=== PATIENT | female | born 1945 | race American Indian/Alaskan Native ===

== ENCOUNTER 2016-07-09 00:03 | Emergency (ER) | payer MEDICARE, OTHER ==
[2016-07-09 00:17] VITALS: BP 164/40
--- NOTE | 2016-07-09 01:07 | EDM.PDOC ---
ED HPI LOWER BACK PAIN/INJURY - General Chief Complaint: Back Pain or Injury Stated Complaint: LOWER BACK PAIN Time Seen by Provider: 07/09/16 00:50 Source of Information: Reports: Patient History Limitations: Reports: No limitations - History of Present Illness INITIAL COMMENTS - FREE TEXT/NARRATIVE: This 71 yo female reports to the ED with her daughter due to lower back pain. The patient reports she has been having intermittent lower back pains over the past month. The patient reports she was driving around yesterday afternoon/ evening and started to experience increased lower back pain. The patient reports she did take 1 Tylenol (325 mg) at 1600 yesterday, but has continued to have lower back pain. The patient reports she has previously been seen by a bone and joint MD, but did not want to have an injection in her back. 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 - Related Data Allergies/ADRs: Allergies Allergy/AdvReac Type Severity Reaction Status Date / Time clarithromycin Allergy Hives Verified 07/09/16 00:17 codeine Allergy Stomach Verified 07/09/16 00:17 Ache promethazine HCl Allergy Hives Verified 07/09/16 00:17 [From Phenergan] raloxifene Allergy Hives Verified 07/09/16 00:17 Home Meds: Home Meds Calcium Carb & Citrate/Vit D3 [Citracal + D ER] 1 tab PO BID 02/05/14 [History] Fish Oil/Ama-3 Fatty Acids [Fish Oil 1,000 MG] 1 cap PO BID 02/05/14 [History] Metoprolol Tartrate [Lopressor] 25 mg PO DAILY 02/05/14 [History] Multivitamin [Multi Vitamin Daily] 1 tab PO DAILY 02/05/14 [History] Omeprazole [Prilosec] 20 mg PO DAILY 02/05/14 [History] Alendronate [Fosamax] 1 tab PO WEEKLY 08/26/15 [History] Aspirin [Halfprin] 81 mg PO DAILY 08/26/15 [History] Chlorthalidone 12.5 mg PO DAILY 08/26/15 [History] Magnesium Oxide 200 mg PO BID 08/26/15 [History] Sildenafil [Revatio] 1 tab PO BID 08/26/15 [History] amLODIPine [Norvasc] 10 mg PO DAILY 08/26/15 [History] Ciclopirox [Ciclopirox] 1 applic TOP ASDIRECTED 05/07/16 [History] Docusate Sodium [Colace] 100 mg PO DAILY PRN 05/07/16 [History] azaTHIOprine [Imuran] 50 mg PO BID 05/07/16 [History] Lactulose 45 ml PO DAILY 07/09/16 [History] Past Medical History HEENT History: Reports: Impaired vision, Other (see below) Other HEENT History: 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 VENTRAL HERNIA. 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: Musculoskeletal History: Reports: Other (see below) Other Musculoskeletal History: DEGENERATIVE JOINT DISEASE Neurological History: Reports: None Psychiatric History: Reports: Anxiety Endocrine/Metabolic History: Reports: Obesity/BMI 30+ Hematologic History: Reports: None Immunologic History: Reports: None Oncologic (Cancer) History: Reports: None Other Dermatologic History: recent ingrown toenail R) great to removed, now having drng and discomfort - Infectious Disease History Infectious Disease History: Reports: Chicken pox Other Infectious Disease History: doesn't remember - Past Surgical History Head Surgeries/Procedures: Reports: None GI Surgical History: Reports: Appendectomy, Cholecystectomy, Colonoscopy, EGD, Hernia, abdominal, Hernia repair/other Female Surgical History: Reports: section, Hysterectomy, Salpingo- oophorectomy Social & Family History - Family History Family Medical History: Noncontributory HEENT: Reports: None Cardiac: Reports: Hypertension Respiratory: Reports: None GI: Reports: None : Reports: None OBGYN: Reports: None Musculoskeletal: Reports: SLE Neurological: Reports: None Psychiatric: Reports: None Endocrine/Metabolic: Reports: None Hematologic: Reports: None Immunologic: Reports: None Dermatologic: Reports: None Oncologic: Reports: None - Tobacco Use Smoking Status *Q: Never Smoker Used Tobacco, but Quit: Yes Month Tobacco Last Used: 07/08/2008 Second Hand Smoke Exposure: No - Caffeine Use Caffeine Use: Reports: None Other Caffeine Use: AVERAGE INTAKE 4 CUPS - Recreational Drug Use Recreational Drug Use: No Drug Use in Last 12 Months: No ED ROS GENERAL - Review of Systems Review Of Systems: See Below Constitutional: Reports: no symptoms HEENT: Reports: No symptoms Respiratory: Reports: No Symptoms Cardiovascular: Reports: No symptoms Endocrine: Reports: no symptoms GI/Abdominal: Reports: No symptoms : Reports: no symptoms Musculoskeletal: Reports: back pain (lower back pain) Skin: Reports: no symptoms Neurological: Reports: No Symptoms Psychiatric: Reports: No symptoms Hematologic/Lymphatic: Reports: no symptoms Immunologic: Reports: no symptoms ED EXAM,LOWER BACK PAIN/INJURY - Physical Exam Exam: See Below Exam Limited By: No limitations General Appearance: alert, WD/WN, mild distress Eye Exam: bilateral eye: EOMI, normal inspection, PERRL Ears: normal external exam, normal canal, hearing grossly normal, normal TMs Nose: normal inspection, normal mucosa, no blood Throat/Mouth: Normal inspection, Normal lips, Normal teeth, Normal gums, Normal oropharynx, Normal voice, No airway compromise Head: atraumatic, normocephalic Neck: normal inspection, supple, non-tender, full range of motion Respiratory/Chest: no respiratory distress, lungs clear, normal breath sounds, no accessory muscle use, chest non-tender Cardiovascular: normal peripheral pulses, regular rate, rhythm, no edema, no gallop, no JVD, no murmur, no rub GI/Abdominal: normal bowel sounds, soft, non tender, no organomegaly, no distention, no abnormal bruit, no mass (Female) Exam: Deferred Rectal (Female) Exam: Deferred Back Exam: paraspinal tenderness (lower back) Extremities: normal inspection, normal range of motion, non-tender, no pedal edema, normal capillary refill Neurological: alert, normal mood/affect, normal dorsiflexion, CN II-XII intact, normal plantar flexion, normal gait, normal reflexes, no motor/sensory deficits , oriented x 3 Psychiatric: normal affect, normal mood Skin Exam: Warm, Dry, Intact, Normal color, No rash Lymphatic: no adenopathy Course - Vital Signs Last Recorded V/S: Last Vital Signs Temp 36.2 C 07/09/16 00:10 Pulse 62 07/09/16 00:10 Resp 16 07/09/16 00:10 BP 164/40 H 07/09/16 00:10 Pulse Ox 100 07/09/16 00:10 - Orders/Labs/Meds Orders: Active Orders 24 hr Category Date Time Status UA W/MICROSCOPIC [URIN] Stat Lab 07/09/16 00:54 Ordered Departure - Departure Time of Disposition: 01:33 Disposition: Home, Self-Care 01 Condition: fair Clinical Impression: Low back pain Qualifiers: Chronicity: chronic Back pain laterality: bilateral Sciatica presence: without sciatica Qualified Code(s): M54.5 - Low back pain; G89.29 - Other chronic pain Instructions: Back Pain, Adult, Nerk-ro-Hyws Forms: ED Department Discharge Care Plan Goals: The patient was advised of the examination and lab results during the visit. The patient was given an injection of Toradol (30 mg) and an oral dose of Flexeril (10 mg) while in the ED. The patient was encouraged to follow-up with her primary care facility for continued evaluation and management. If the patient has any additional symptoms or concerns, the patient should follow-up with her primary care facility or return to the emergency department. - My Orders Last 24 Hours: My Active Orders 07/09/16 00:54 UA W/MICROSCOPIC [URIN] Stat - Assessment/Plan Last 24 Hours: My Active Orders 07/09/16 00:54 UA W/MICROSCOPIC [URIN] Stat
[2016-07-09] MEDS ORDERED: Ketorolac 30 MG/ML SDV IM ONE (01:32)
[2016-07-09] MEDS ORDERED: Cyclobenzaprine 10 MG Tab PO ONE (01:32)
== END 2016-07-09 01:56 | disposition home or self-care (01) ==
LOC: DL.ED 00:03
DX: M54.5 Low back pain (principal); G89.29 Other chronic pain; I10 Essential (primary) hypertension; K21.9 Gastro-esophageal reflux disease without esophagitis; F41.9 Anxiety disorder, unspecified; E66.9 Obesity, unspecified; Z90.49 Acquired absence of other specified parts of digestive tract; Z90.710 Acquired absence of both cervix and uterus; Z79.82 Long term (current) use of aspirin; Z79.899 Other long term (current) drug therapy; Z88.1 Allergy status to other antibiotic agents; Z88.5 Allergy status to narcotic agent
CPT/HCPCS: 81001; 96372; 99283; A9270; J1885

== ENCOUNTER 2016-07-22 00:47 | Emergency (ER) | payer MEDICARE, OTHER ==
[2016-07-22 01:06] VITALS: BP 182/58
[2016-07-22] MEDS ORDERED: Iopamidol 612 MG/ML 75 ML Bottle IVPUSH ONE (01:11)
--- NOTE | 2016-07-22 02:06 | EDM.PDOC ---
ED HPI GI/ABDOMINAL - General Chief Complaint: Abdominal Pain Stated Complaint: ABD PAIN Time Seen by Provider: 07/22/16 01:15 Source of Information: Reports: Patient History Limitations: Reports: No limitations - History of Present Illness INITIAL COMMENTS - FREE TEXT/NARRATIVE: c/o generalized abdominal pain similar to past since 1830 , no BM for 3 days no nausea or vomiting. Timing/Duration: Reports: Hour(s): Location: generalized Quality: Reports: fullness Severity: moderate - Related Data Allergies/ADRs: Allergies Allergy/AdvReac Type Severity Reaction Status Date / Time clarithromycin Allergy Hives Verified 07/09/16 00:17 codeine Allergy Stomach Verified 07/09/16 00:17 Ache promethazine HCl Allergy Hives Verified 07/09/16 00:17 [From Phenergan] raloxifene Allergy Hives Verified 07/09/16 00:17 Home Meds: Home Meds Calcium Carb & Citrate/Vit D3 [Citracal + D ER] 1 tab PO BID 02/05/14 [History] Fish Oil/Marshall-3 Fatty Acids [Fish Oil 1,000 MG] 1 cap PO BID 02/05/14 [History] Metoprolol Tartrate [Lopressor] 25 mg PO DAILY 02/05/14 [History] Multivitamin [Multi Vitamin Daily] 1 tab PO DAILY 02/05/14 [History] Omeprazole [Prilosec] 20 mg PO DAILY 02/05/14 [History] Alendronate [Fosamax] 1 tab PO WEEKLY 08/26/15 [History] Aspirin [Halfprin] 81 mg PO DAILY 08/26/15 [History] Chlorthalidone 12.5 mg PO DAILY 08/26/15 [History] Magnesium Oxide 200 mg PO BID 08/26/15 [History] Sildenafil [Revatio] 1 tab PO BID 08/26/15 [History] amLODIPine [Norvasc] 10 mg PO DAILY 08/26/15 [History] Ciclopirox [Ciclopirox] 1 applic TOP ASDIRECTED 05/07/16 [History] Docusate Sodium [Colace] 100 mg PO DAILY PRN 05/07/16 [History] azaTHIOprine [Imuran] 50 mg PO BID 05/07/16 [History] Lactulose 45 ml PO DAILY 07/09/16 [History] Past Medical History HEENT History: Reports: Impaired vision, Other (see below) Other HEENT History: 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 VENTRAL HERNIA. 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: Musculoskeletal History: Reports: Other (see below) Other Musculoskeletal History: DEGENERATIVE JOINT DISEASE Neurological History: Reports: None Psychiatric History: Reports: Anxiety Endocrine/Metabolic History: Reports: Obesity/BMI 30+ Hematologic History: Reports: None Immunologic History: Reports: None Oncologic (Cancer) History: Reports: None Other Dermatologic History: recent ingrown toenail R) great to removed, now having drng and discomfort - Infectious Disease History Infectious Disease History: Reports: Chicken pox Other Infectious Disease History: doesn't remember - Past Surgical History Head Surgeries/Procedures: Reports: None GI Surgical History: Reports: Appendectomy, Cholecystectomy, Colonoscopy, EGD, Hernia, abdominal, Hernia repair/other Female Surgical History: Reports: section, Hysterectomy, Salpingo- oophorectomy Social & Family History - Family History Family Medical History: Noncontributory HEENT: Reports: None Cardiac: Reports: Hypertension Respiratory: Reports: None GI: Reports: None : Reports: None OBGYN: Reports: None Musculoskeletal: Reports: SLE Neurological: Reports: None Psychiatric: Reports: None Endocrine/Metabolic: Reports: None Hematologic: Reports: None Immunologic: Reports: None Dermatologic: Reports: None Oncologic: Reports: None - Tobacco Use Smoking Status *Q: Never Smoker Used Tobacco, but Quit: Yes Month Tobacco Last Used: 07/08/2008 Second Hand Smoke Exposure: No - Caffeine Use Caffeine Use: Reports: None Other Caffeine Use: AVERAGE INTAKE 4 CUPS - Recreational Drug Use Recreational Drug Use: No Drug Use in Last 12 Months: No ED ROS GENERAL - Review of Systems Review Of Systems: See Below Constitutional: Denies: fever, chills HEENT: Reports: No symptoms Respiratory: Reports: No Symptoms Cardiovascular: Reports: No symptoms GI/Abdominal: Reports: Abdominal pain, Constipation : Reports: no symptoms Skin: Reports: no symptoms ED EXAM, GI/ABD - Physical Exam Exam: See Below Exam Limited By: No limitations General Appearance: alert, mild distress Eyes: bilateral: normal appearance Throat/Mouth: Normal inspection, Normal voice Head: atraumatic, normocephalic Neck: normal inspection Respiratory/Chest: no respiratory distress, lungs clear Cardiovascular: regular rate, rhythm GI/Abdominal: soft, tenderness, distention Neurological: alert, oriented Skin Exam: Warm, Dry, Intact, Normal color Course - Vital Signs Last Recorded V/S: Last Vital Signs Temp 98.8 F 07/22/16 01:01 Pulse 66 07/22/16 01:01 Resp 18 07/22/16 01:01 BP 182/58 H 07/22/16 01:01 Pulse Ox 100 07/22/16 01:01 - Orders/Labs/Meds Orders: Active Orders 24 hr Category Date Time Status AMYLASE [CHEM] Stat Lab 07/22/16 01:09 Stop Req CBC WITH AUTO DIFF [HEME] Stat Lab 07/22/16 01:09 Stop Req COMPREHENSIVE METABOLIC PN,CMP [CHEM] Stat Lab 07/22/16 01:09 Stop Req LIPASE [CHEM] Stat Lab 07/22/16 01:09 Stop Req UA W/MICROSCOPIC [URIN] Stat Lab 07/22/16 01:21 Stop Req Meds: Medications Discontinued Medications Generic Name Dose Route Start Last Admin Trade Name Freq PRN Reason Stop Dose Admin Iopamidol 75 ml 07/22/16 01:11 Isovue-300 (61%) IVPUSH 07/22/16 01:12 ONETIME ONE - Re-Assessments/Exams Free Text/Narrative Re-Assessment/Exam: 07/22/16 02:03 Patient initially refused IV for CT contrast, after further discussion briefly agreeable to IV for contrast and labs. Before able to obtain lab or start IV refused and stated she wanted to leave, did not want either, risks reviewed and signed AMA form. Left ambulatory. Departure - Departure Time of Disposition: 01:35 Disposition: Against Medical Advice 07 Condition: undetermined Clinical Impression: Abdominal pain Qualifiers: Abdominal location: generalized Qualified Code(s): R10.84 - Generalized abdominal pain Referrals: Kevyn Valladares MD [Primary Care Provider] - Forms: ED Department Discharge - My Orders Last 24 Hours: My Active Orders 07/22/16 01:09 AMYLASE [CHEM] Stat CBC WITH AUTO DIFF [HEME] Stat COMPREHENSIVE METABOLIC PN,CMP [CHEM] Stat LIPASE [CHEM] Stat 07/22/16 01:21 UA W/MICROSCOPIC [URIN] Stat - Assessment/Plan Last 24 Hours: My Active Orders 07/22/16 01:09 AMYLASE [CHEM] Stat CBC WITH AUTO DIFF [HEME] Stat COMPREHENSIVE METABOLIC PN,CMP [CHEM] Stat LIPASE [CHEM] Stat 07/22/16 01:21 UA W/MICROSCOPIC [URIN] Stat
== END 2016-07-22 01:33 | disposition left against medical advice (07) ==
LOC: DL.ED 00:47
DX: R10.84 Generalized abdominal pain (principal); I10 Essential (primary) hypertension; K21.9 Gastro-esophageal reflux disease without esophagitis; F41.9 Anxiety disorder, unspecified; E66.9 Obesity, unspecified; Z90.49 Acquired absence of other specified parts of digestive tract; Z90.710 Acquired absence of both cervix and uterus; Z79.82 Long term (current) use of aspirin; Z79.899 Other long term (current) drug therapy; Z88.5 Allergy status to narcotic agent; Z88.8 Allergy status to other drugs, medicaments and biological substances
CPT/HCPCS: 99282; 99283

== ENCOUNTER 2016-09-09 19:41 | Emergency (ER) | payer MEDICARE, OTHER | END 2016-09-09 20:10 | disposition left against medical advice (07) | LOC: DL.ED 19:41 | DX: Z53.21 Procedure and treatment not carried out due to patient leaving prior to being seen by health care provider (principal) ==

== ENCOUNTER 2017-04-13 07:17 | Emergency (ER) | payer MEDICARE, OTHER ==
[2017-04-13] MEDS ORDERED: Sodium Chloride 0.9% 10 ML Syringe FLUSH PRN (07:50)
[2017-04-13] MEDS ORDERED: fentaNYL 100 MCG/2 ML SDV IVPUSH ONE ×2 (07:52→08:56)
[2017-04-13] MEDS ORDERED: diphenhydrAMINE 50 MG/ML SDV IVPUSH ONE (07:52)
[2017-04-13] MEDS ORDERED: Ondansetron 4 MG/2 ML SDV IV ONE (07:52)
[2017-04-13] MEDS ORDERED: Sodium Chloride 0.9% 1,000 ML IV SCH (08:00)
--- NOTE | 2017-04-13 08:00 | EDM.PDOC ---
ED HPI GENERAL MEDICAL PROBLEM - General Chief Complaint: Abdominal Pain Stated Complaint: BY AMBULANCE Time Seen by Provider: 04/13/17 07:45 Source of Information: Reports: Patient History Limitations: Reports: No Limitations - History of Present Illness INITIAL COMMENTS - FREE TEXT/NARRATIVE: Patient comes emergency Department today by ambulance from home with complaints of lower abdominal pain. During the night approximately 0200 hrs. patient developed lower abdominal pain and abdominal distention and bloating. She has been retching and vomiting at home most of the night. She did have a bowel movement last night that was rather hard she relates. No recent diarrhea. No fever no chills. No chest pain or shortness of breath. No hematuria dysuria or urinary frequency. She has had multiple surgeries on her abdomen and to include a cholecystectomy as well as an appendectomy. She has had a bowel obstruction in the past for which this feels like. Lower Abdomen Pain Score (Numeric/FACES): 10 - Related Data Allergies Allergy/AdvReac Type Severity Reaction Status Date / Time clarithromycin Allergy Hives Verified 04/13/17 07:52 codeine Allergy Stomach Verified 04/13/17 07:52 Ache promethazine HCl Allergy Hives Verified 04/13/17 07:52 [From Phenergan] raloxifene Allergy Hives Verified 04/13/17 07:52 Home Meds: Home Meds Calcium Carb & Citrate/Vit D3 [Citracal + D ER] 1 tab PO BID 02/05/14 [History] Fish Oil/[place]-3 Fatty Acids [Fish Oil 1,000 MG] 1 cap PO BID 02/05/14 [History] Metoprolol Tartrate [Lopressor] 25 mg PO DAILY 02/05/14 [History] Multivitamin [Multi Vitamin Daily] 1 tab PO DAILY 02/05/14 [History] Omeprazole [Prilosec] 20 mg PO DAILY 02/05/14 [History] Alendronate [Fosamax] 1 tab PO WEEKLY 08/26/15 [History] Aspirin [Halfprin] 81 mg PO DAILY 08/26/15 [History] Chlorthalidone 12.5 mg PO DAILY 08/26/15 [History] Magnesium Oxide 200 mg PO BID 08/26/15 [History] amLODIPine [Norvasc] 10 mg PO DAILY 08/26/15 [History] Ciclopirox [Ciclopirox] 1 applic TOP ASDIRECTED 05/07/16 [History] Docusate Sodium [Colace] 100 mg PO DAILY PRN 05/07/16 [History] azaTHIOprine [Imuran] 50 mg PO BID 05/07/16 [History] Lactulose 45 ml PO DAILY 07/09/16 [History] Past Medical History HEENT History: Reports: Impaired Vision, Other (See Below) Other HEENT History: 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 VENTRAL HERNIA. BOLTON'S ESOPHAGUS Genitourinary History: Reports: None RN WOUND History: Reports: Musculoskeletal History: Reports: Other (See Below) Other Musculoskeletal History: DEGENERATIVE JOINT DISEASE Neurological History: Reports: None Psychiatric History: Reports: Anxiety Endocrine/Metabolic History: Reports: Obesity/BMI 30+ Hematologic History: Reports: None Immunologic History: Reports: None Oncologic (Cancer) History: Reports: None Other Dermatologic History: recent ingrown toenail R) great to removed, now having drng and discomfort - Infectious Disease History Infectious Disease History: Reports: Chicken Pox Other Infectious Disease History: doesn't remember - Past Surgical History Head Surgeries/Procedures: Reports: None GI Surgical History: Reports: Appendectomy, Cholecystectomy, Colonoscopy, EGD, Hernia, Abdominal, Hernia Repair/Other Female Surgical History: Reports: Section, Hysterectomy, Salpingo- Oophorectomy Social & Family History - Family History Family Medical History: Noncontributory HEENT: Reports: None Cardiac: Reports: Hypertension Respiratory: Reports: None GI: Reports: None : Reports: None OBGYN: Reports: None Musculoskeletal: Reports: SLE Neurological: Reports: None Psychiatric: Reports: None Endocrine/Metabolic: Reports: None Hematologic: Reports: None Immunologic: Reports: None Dermatologic: Reports: None Oncologic: Reports: None - Tobacco Use Smoking Status *Q: Never Smoker Used Tobacco, but Quit: Yes Month Tobacco Last Used: 07/08/2008 Second Hand Smoke Exposure: No - Caffeine Use Caffeine Use: Reports: None Other Caffeine Use: AVERAGE INTAKE 4 CUPS - Recreational Drug Use Recreational Drug Use: No Drug Use in Last 12 Months: No ED ROS GENERAL - Review of Systems Review Of Systems: ROS reveals no pertinent complaints other than HPI. ED EXAM, GI/ABD - Physical Exam Exam: See Below Text/Narrative:: She is laying on her left side in the position as it is uncomfortable for her to lay down. Her abdomen appears quite distended. Exam Limited By: No Limitations General Appearance: Alert, WD/WN, Mild Distress Eyes: Bilateral: EOMI Ears: Normal External Exam Nose: Normal Inspection, Normal Mucosa Throat/Mouth: Normal Inspection, Normal Lips Head: Atraumatic, Normocephalic Neck: Normal Inspection, Supple Respiratory/Chest: No Respiratory Distress, Lungs Clear, Normal Breath Sounds, No Accessory Muscle Use Cardiovascular: Normal Peripheral Pulses, Regular Rate, Rhythm GI/Abdominal Exam: Distended (Quite distended primarily in the lower aspect of the abdomen.), Guarding (Lower abdomen without rebound), Tender (Generalized tenderness throughout the abdomen.), Abnormal Bowel Sounds (Decreased bowel sounds). No: Rebound (Female) Exam: Deferred Rectal (Female) Exam: Deferred Back Exam: Normal Inspection. No: CVA Tenderness (L), CVA Tenderness (R) Extremities: Normal Inspection, Non-Tender, Normal Capillary Refill Neurological: Alert, Oriented, CN II-XII Intact Psychiatric: Normal Affect, Normal Mood Skin Exam: Warm, Dry, Intact, Normal Color Lymphatic: No Adenopathy Course - Vital Signs Last Recorded V/S: Last Vital Signs Temp 38.1 C 04/13/17 16:15 Pulse 92 04/13/17 16:21 Resp 16 04/13/17 13:55 BP 161/42 H 04/13/17 16:21 Pulse Ox 97 04/13/17 13:55 - Orders/Labs/Meds Orders: Active Orders 24 hr Category Date Time Status Enema [RC] ASDIRECTED Care 04/13/17 08:47 Active Peripheral IV Care [RC] . DIRECTED Care 04/13/17 07:51 Active CULTURE BLOOD [BC] Stat Lab 04/13/17 12:38 Received CULTURE BLOOD [BC] Stat Lab 04/13/17 12:44 Received CULTURE URINE [RM] Stat Lab 04/13/17 14:34 Received Sodium Chloride 0.9% [Normal Saline] 1,000 ml Med 04/13/17 08:00 Active IV ASDIRECTED Sodium Chloride 0.9% [Saline Flush] Med 04/13/17 07:50 Active 10 ml FLUSH ASDIRECTED PRN Blood Culture x2 Reflex Set [OM.PC] Stat Oth 04/13/17 12:19 Ordered NG [Nasogastric Orogastric Tube Insertion] [OM.PC] Oth 04/13/17 08:20 Ordered Routine Peripheral IV Insertion Adult [OM.PC] Stat Ot 04/13/17 07:50 Ordered Medication Orders Sodium Chloride (Normal Saline) 1,000 mls @ 125 mls/hr IV ASDIRECTED EMILY Last Infusion: 04/13/17 08:23 Dose: 125 mls/hr Infusion: 04/13/17 08:04 Dose: 999 mls/hr Infusion: 04/13/17 08:04 Dose: 250 mls/hr Admin: 04/13/17 08:03 Dose: 125 mls/hr Sodium Chloride (Saline Flush) 10 ml FLUSH ASDIRECTED PRN PRN Reason: Keep Vein Open Last Admin: 04/13/17 07:55 Dose: 10 ml Labs: Laboratory Tests 04/13/17 04/13/17 04/13/17 Range/Units 07:46 07:46 07:46 WBC 10.9 H (5.0-10.0) 10^3/uL RBC 4.52 (4.2-5.4) 10^6/uL Hgb 13.1 (12.0-16.0) g/dL Hct 39.4 (37.0-47.0) % MCV 87.2 D (80-100) fL MCH 29.0 (27.0-34.0) pg MCHC 33.2 (33.0-35.0) g/dL Plt Count 265 (150-450) 10^3/uL Neut % (Auto) 93.4 H (42.2-75.2) % Lymph % (Auto) 3.3 L (20.5-50.1) % Leon % (Auto) 2.9 (2-8) % Eos % (Auto) 0.2 L (1.0-3.0) % Baso % (Auto) 0.2 (0.0-1.0) % Sodium 135 (135-145) mmol/L Potassium 3.2 L (3.6-5.0) mmol/L Chloride 98 L (101-111) mmol/L Carbon Dioxide 23.0 (21.0-31.0) mmol/L Anion Gap 17.2 BUN 13 (7-18) mg/dL Creatinine 0.7 (0.6-1.3) mg/dL Est Cr Clr Drug Dosing 53.71 mL/min Estimated GFR (MDRD) > 60 BUN/Creatinine Ratio 18.57 Glucose 189 H (74-105) mg/dL Lactic Acid 3.0 H (0.5-2.2) mmol/L Calcium 9.3 (8.4-10.2) mg/dl Total Bilirubin 0.4 (0.2-1.0) mg/dL AST 34 (10-42) IU/L ALT 17 (10-60) IU/L Alkaline Phosphatase 73 (42-121) IU/L C-Reactive Protein (0.0-1.3) mg/dL Total Protein 7.7 (6.7-8.2) g/dl Albumin 4.2 (3.2-5.5) g/dl Globulin 3.5 Albumin/Globulin Ratio 1.20 Urine Color (YELLOW) Urine Appearance (CLEAR) Urine pH (5.0-9.0) Ur Specific [place] (1.005-1.030) Urine Protein (NEGATIVE) Urine Glucose (UA) (NEGATIVE) Urine Ketones (NEGATIVE) Urine Occult Blood (NEGATIVE) Urine Nitrite (NEGATIVE) Urine Bilirubin (NEGATIVE) Urine Urobilinogen (0.2-1.0) mg/dL Ur Leukocyte Esterase (NEGATIVE) Urine RBC /HPF Urine WBC (0-5/HPF) /HPF Ur Epithelial Cells /HPF Urine Bacteria (0-FEW/HPF) /HPF 04/13/17 04/13/17 Range/Units 07:46 14:34 WBC (5.0-10.0) 10^3/uL RBC (4.2-5.4) 10^6/uL Hgb (12.0-16.0) g/dL Hct (37.0-47.0) % MCV (80-100) fL MCH (27.0-34.0) pg MCHC (33.0-35.0) g/dL Plt Count (150-450) 10^3/uL Neut % (Auto) (42.2-75.2) % Lymph % (Auto) (20.5-50.1) % Leon % (Auto) (2-8) % Eos % (Auto) (1.0-3.0) % Baso % (Auto) (0.0-1.0) % Sodium (135-145) mmol/L Potassium (3.6-5.0) mmol/L Chloride (101-111) mmol/L Carbon Dioxide (21.0-31.0) mmol/L Anion Gap BUN (7-18) mg/dL Creatinine (0.6-1.3) mg/dL Est Cr Clr Drug Dosing mL/min Estimated GFR (MDRD) BUN/Creatinine Ratio Glucose (74-105) mg/dL Lactic Acid (0.5-2.2) mmol/L Calcium (8.4-10.2) mg/dl Total Bilirubin (0.2-1.0) mg/dL AST (10-42) IU/L ALT (10-60) IU/L Alkaline Phosphatase (42-121) IU/L C-Reactive Protein 1.0 (0.0-1.3) mg/dL Total Protein (6.7-8.2) g/dl Albumin (3.2-5.5) g/dl Globulin Albumin/Globulin Ratio Urine Color Yellow (YELLOW) Urine Appearance Slightly cloudy (CLEAR) Urine pH 7.0 (5.0-9.0) Ur Specific [place] 1.025 (1.005-1.030) Urine Protein >=300 H (NEGATIVE) Urine Glucose (UA) Negative (NEGATIVE) Urine Ketones Negative (NEGATIVE) Urine Occult Blood Negative (NEGATIVE) Urine Nitrite Negative (NEGATIVE) Urine Bilirubin Negative (NEGATIVE) Urine Urobilinogen 1.0 (0.2-1.0) mg/dL Ur Leukocyte Esterase Negative (NEGATIVE) Urine RBC 5-10 H /HPF Urine WBC 10-20 H (0-5/HPF) /HPF Ur Epithelial Cells Rare /HPF Urine Bacteria Rare (0-FEW/HPF) /HPF Meds: Medications Generic Name Dose Route Start Last Admin Trade Name Freq PRN Reason Stop Dose Admin Sodium Chloride 1,000 mls @ 125 mls/hr 04/13/17 08:00 04/13/17 08:23 Normal Saline IV 125 mls/hr ASDIRECTED EMILY Infusion Sodium Chloride 10 ml 04/13/17 07:50 04/13/17 07:55 Saline Flush FLUSH 10 ml ASDIRECTED PRN Administration Keep Vein Open Discontinued Medications Generic Name Dose Route Start Last Admin Trade Name Juan David PRN Reason Stop Dose Admin Diphenhydramine HCl 12.5 mg 04/13/17 07:52 04/13/17 07:58 Benadryl IVPUSH 04/13/17 07:53 12.5 mg ONETIME ONE Administration Fentanyl 25 mcg 04/13/17 07:52 04/13/17 07:59 Sublimaze IVPUSH 04/13/17 07:53 25 mcg ONETIME ONE Administration Fentanyl 50 mcg 04/13/17 08:56 04/13/17 09:02 Sublimaze IVPUSH 04/13/17 08:57 50 mcg ONETIME ONE Administration Iopamidol 75 ml 04/13/17 14:00 04/13/17 13:15 Isovue-300 (61%) IVPUSH 04/13/17 14:01 75 ml ONETIME ONE Administration Morphine Sulfate 4 mg 04/13/17 12:55 04/13/17 13:04 Morphine IVPUSH 04/13/17 12:56 4 mg ONETIME ONE Administration Morphine Sulfate 4 mg 04/13/17 16:18 04/13/17 16:27 Morphine IVPUSH 04/13/17 16:19 4 mg ONETIME ONE Administration Ondansetron HCl 4 mg 04/13/17 07:52 04/13/17 07:57 Zofran IV 04/13/17 07:53 4 mg ONETIME ONE Administration - Radiology Interpretation Free Text/Narrative:: Two-view abdomen per radiology fecal impaction. This appears to be causing the obstruction. CT abdomen and pelvis per radiology. #1 huge ventral wall defect and incarcerated loops of bowel no evidence of air-fluid level or associated mechanical bowel obstruction. Ileus is present. #2 large volume of stool in the intraperitoneal descending and right colon. Large oval dense mass in the rectus sheath question hernia mesh versus sponge foreign body. No abdominal or pelvic mass lesion no mesenteric or retroperitoneal lymphadenopathy. Huge hiatal hernia. NG tube. - Re-Assessments/Exams Free Text/Narrative Re-Assessment/Exam: 04/13/17 07:58 IV normal saline 250 bolus. Then 125mls hour. Benadryl 12.5mg Zofran 4mg IV Fentanyl 25mg IVP 04/13/17 09:54 Two-view abdomen per radiology fecal impaction. This appears to be causing the obstruction. 04/13/17 09:55 To the floor for enema. 04/13/17 12:19 After multiple attempts of an enema which were unsuccessful the patient has increased pain and now is a fever of 101.2. We will do a CAT scan of her abdomen at this time. 04/13/17 17:12 Blood cultures pending. Patient is still quite uncomfortable. The hospitalist refused to admit the patient here. I will transfer [facility]. Departure - Departure Time of Disposition: 15:56 Disposition: DC/Tfer to [facility] 02 Clinical Impression: Ileus, Fecal impaction - Discharge Information Forms: ED Department Discharge, Interfacility Transfer EMTALA ED Communication - Discussed Case With (1) Discussed Case With (1): Admitting Provider (Called and spoke with the hospitalist about my concerns of the abd distention continued pain and fever at this time without improvement with multiple enemas. HE did go and assess the patient and refused the patient for admission here, with a surgeon available this week.) - Discussed Case With (2) Discussed Case With (2): Admitting Provider (Called and spoke with Dr. Brooks at in [facility] ER COURSE findings and concerns were relayed to him verbally over the phone. His questions were answered and he accepted the patient in transfer at this time.) - My Orders Last 24 Hours: My Active Orders 04/13/17 07:50 Sodium Chloride 0.9% [Saline Flush] 10 ml FLUSH ASDIRECTED PRN Peripheral IV Insertion Adult [OM.PC] Stat 04/13/17 07:51 Peripheral IV Care [RC] . DIRECTED 04/13/17 08:00 Sodium Chloride 0.9% [Normal Saline] 1,000 ml IV ASDIRECTED 04/13/17 08:20 NG [Nasogastric Orogastric Tube Insertion] [OM.PC] Routine 04/13/17 08:47 Enema [RC] ASDIRECTED 04/13/17 12:19 Blood Culture x2 Reflex Set [OM.PC] Stat 04/13/17 12:38 CULTURE BLOOD [BC] Stat 04/13/17 12:44 CULTURE BLOOD [BC] Stat 04/13/17 14:34 CULTURE URINE [RM] Stat - Assessment/Plan Last 24 Hours: My Active Orders 04/13/17 07:50 Sodium Chloride 0.9% [Saline Flush] 10 ml FLUSH ASDIRECTED PRN Peripheral IV Insertion Adult [OM.PC] Stat 04/13/17 07:51 Peripheral IV Care [RC] . DIRECTED 04/13/17 08:00 Sodium Chloride 0.9% [Normal Saline] 1,000 ml IV ASDIRECTED 04/13/17 08:20 NG [Nasogastric Orogastric Tube Insertion] [OM.PC] Routine 04/13/17 08:47 Enema [RC] ASDIRECTED 04/13/17 12:19 Blood Culture x2 Reflex Set [OM.PC] Stat 04/13/17 12:38 CULTURE BLOOD [BC] Stat 04/13/17 12:44 CULTURE BLOOD [BC] Stat 04/13/17 14:34 CULTURE URINE [RM] Stat Assessment:: Ileus, most likely from fecal impaction and large hiatas hernia. Febrile Plan: Transfer to [facility] for further care and evaluation and management. Continue IV fluids and NG to sxn.
[2017-04-13 08:13] LABS: ANION GAP 17.2; CHLORIDE,CL 98 mmol/L (101-111); SODIUM,NA 135 mmol/L (135-145)
[2017-04-13] MEDS ORDERED: Morphine 4 MG/ML Syringe IVPUSH ONE ×2 (12:55→16:18)
[2017-04-13] MEDS ORDERED: Iopamidol 612 MG/ML 75 ML Bottle IVPUSH ONE (14:00)
--- NOTE | 2017-04-13 14:53 | CT ---
CLINICAL HISTORY: 72-year-old 166 pound female with fecal impaction (bowel obstruction?); previous hy sterectomy and appendectomy. SCAN TECHNIQUE: Volume acquisition of data from the abdomen and pelvis obtained without oral contrast but during the intravenous administration 75 cc nonionic Isovue contrast (3 cc/s via injector) while lying supine on the Siemens multislice CT scanner [place], [place]. A ll data archived in the PACS system for storage, reformatting and study. INTERPRETATION: Abnormal. 1. Huge ventral wall defect with herniated and incarcerated loops of some small and descending left l arge intestine but no current evidence of pathologic air-fluid level, (i.e., no associated mechanical bowel obstruction at this time). Ileus. 2. Large volume of stool in the intraperitoneal, ascending, right colon. 3. No inflammatory "dirty" peritoneal fat, ascites or free intraperitoneal air. 4. Large oval 2.5 x 5.5 cm dense mass in the rectus sheath, right of midline, just above the pubic sy mphysis. (Hernia mesh? Sponge foreign body? Postoperative dystrophic calcifications?) NOTE: This unchanged since 26 April 2016 exam. 5. No abdominal or pelvic mass lesion; No mesenteric or retroperitoneal lymphadenopathy. 6. Huge hiatus hernia. NG tube. Dense calcified normal caliber aortoiliac vessels. No aneurysm. 7. Gallbladder not identified. Liver, spleen, pancreas and adrenal glands unremarkable.
[2017-04-13 16:21] VITALS: BP 161/42
== END 2017-04-13 17:21 ==
LOC: DL.ED 07:17
DX: K56.7 Ileus, unspecified (principal); K56.41 Fecal impaction; I10 Essential (primary) hypertension; Z88.1 Allergy status to other antibiotic agents; Z88.5 Allergy status to narcotic agent; Z88.8 Allergy status to other drugs, medicaments and biological substances; Z79.899 Other long term (current) drug therapy; Z79.82 Long term (current) use of aspirin; Z90.49 Acquired absence of other specified parts of digestive tract; Z87.891 Personal history of nicotine dependence
CPT/HCPCS: 36415; 74019; 74177; 80053; 81001; 83605; 85025; 86140; 87040; 87086; 96361; 96374; 96375; 96376; 99285; J1200; J2270; J2405; J3010; J7030; J7050; Q9967; 87077; 99284

== ENCOUNTER 2017-05-09 13:08 | Emergency (ER) | payer MEDICARE, OTHER ==
[2017-05-09 13:27] VITALS: BP 121/59
== END 2017-05-09 13:27 | disposition left against medical advice (07) ==
LOC: DL.ED 13:08
DX: Z53.21 Procedure and treatment not carried out due to patient leaving prior to being seen by health care provider (principal)

== ENCOUNTER 2017-07-21 09:35 | Emergency (ER) | payer MEDICARE, OTHER ==
[2017-07-21 09:53] VITALS: BP 149/55
--- NOTE | 2017-07-21 10:17 | EDM.PDOC ---
ED HPI GENERAL MEDICAL PROBLEM - General Chief Complaint: Neurological Problem Stated Complaint: DIZZY Time Seen by Provider: 07/21/17 09:55 Source of Information: Reports: Patient History Limitations: Reports: No Limitations - History of Present Illness INITIAL COMMENTS - FREE TEXT/NARRATIVE: This 72 yo female patient reports to the ED with generalized dizziness that started this morning. The patient reports she has had a runny nose over the weekend and may have had a fever. The patient has been seeing Dr. Valladares over the past couple of weeks for anemia. The patient reports she has had an EKG, blood work, a couple of visits with Dr. Valladares and an Echo. The patient reports that they have not found anything. The patient reports she is scheduled to go to the [facility] on August 04 for a further evaluation and further treatment. The patient reports her symptoms have mostly resolved by the time of the patient evaluation. The patient's last visit with Dr. Valladares was yesterday. The patient also reports she has vomited 1 time today. Onset: Today (dizziness) Onset Date: 07/21/17 Duration: Improving Location: Reports: Generalized Quality: Reports: Other Severity: Mild Improves with: Reports: None Worsens with: Reports: None Associated Symptoms: Reports: No Other Symptoms - Related Data Allergies Allergy/AdvReac Type Severity Reaction Status Date / Time clarithromycin Allergy Hives Verified 04/13/17 07:52 codeine Allergy Stomach Verified 04/13/17 07:52 Ache promethazine HCl Allergy Hives Verified 04/13/17 07:52 [From Phenergan] raloxifene Allergy Hives Verified 04/13/17 07:52 Home Meds: Home Meds Calcium Carb & Citrate/Vit D3 [Citracal + D ER] 1 tab PO BID 02/05/14 [History] Fish Oil/[place]-3 Fatty Acids [Fish Oil 1,000 MG] 1 cap PO BID 02/05/14 [History] Metoprolol Tartrate [Lopressor] 25 mg PO DAILY 02/05/14 [History] Multivitamin [Multi Vitamin Daily] 1 tab PO DAILY 02/05/14 [History] Omeprazole [Prilosec] 20 mg PO DAILY 02/05/14 [History] Alendronate [Fosamax] 1 tab PO WEEKLY 08/26/15 [History] Aspirin [Halfprin] 81 mg PO DAILY 08/26/15 [History] Chlorthalidone 12.5 mg PO DAILY 08/26/15 [History] Magnesium Oxide 200 mg PO BID 08/26/15 [History] amLODIPine [Norvasc] 10 mg PO DAILY 08/26/15 [History] Ciclopirox 1 applic TOP ASDIRECTED 05/07/16 [History] Docusate Sodium [Colace] 100 mg PO DAILY PRN 05/07/16 [History] azaTHIOprine [Imuran] 50 mg PO BID 05/07/16 [History] Lactulose 45 ml PO DAILY 07/09/16 [History] Past Medical History HEENT History: Reports: Impaired Vision, Other (See Below) Other HEENT History: 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 VENTRAL HERNIA. 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: Musculoskeletal History: Reports: Other (See Below) Other Musculoskeletal History: DEGENERATIVE JOINT DISEASE Neurological History: Reports: None Psychiatric History: Reports: Anxiety Endocrine/Metabolic History: Reports: Obesity/BMI 30+ Hematologic History: Reports: None Immunologic History: Reports: None Oncologic (Cancer) History: Reports: None Other Dermatologic History: recent ingrown toenail R) great to removed, now having drng and discomfort - Infectious Disease History Infectious Disease History: Reports: Chicken Pox Other Infectious Disease History: doesn't remember - Past Surgical History Head Surgeries/Procedures: Reports: None GI Surgical History: Reports: Appendectomy, Cholecystectomy, Colonoscopy, EGD, Hernia, Abdominal, Hernia Repair/Other Female Surgical History: Reports: Section, Hysterectomy, Salpingo- Oophorectomy Social & Family History - Family History Family Medical History: Noncontributory HEENT: Reports: None Cardiac: Reports: Hypertension Respiratory: Reports: None GI: Reports: None : Reports: None OBGYN: Reports: None Musculoskeletal: Reports: SLE Neurological: Reports: None Psychiatric: Reports: None Endocrine/Metabolic: Reports: None Hematologic: Reports: None Immunologic: Reports: None Dermatologic: Reports: None Oncologic: Reports: None - Tobacco Use Smoking Status *Q: Never Smoker Used Tobacco, but Quit: Yes Month/Year Tobacco Last Used: 07/08/2008 Second Hand Smoke Exposure: No - Caffeine Use Caffeine Use: Reports: Coffee, Soda, Tea Other Caffeine Use: AVERAGE INTAKE 4 CUPS - Recreational Drug Use Recreational Drug Use: No Drug Use in Last 12 Months: No ED ROS GENERAL - Review of Systems Review Of Systems: ROS reveals no pertinent complaints other than HPI. - Physical Exam Exam: See Below Exam Limited By: No Limitations General Appearance: Alert, WD/WN, Mild Distress Eye Exam: Bilateral Eye: EOMI, Normal Inspection, PERRL Ears: Normal External Exam, Normal Canal, Hearing Grossly Normal, Normal TMs Nose: Normal Inspection, Normal Mucosa, No Blood Throat/Mouth: Normal Inspection, Normal Lips, Normal Teeth, Normal Gums, Normal Oropharynx, Normal Voice, No Airway Compromise Head Exam: Atraumatic, Normocephalic Neck: Normal Inspection, Supple, Non-Tender, Full Range of Motion Respiratory/Chest: No Respiratory Distress, Lungs Clear, Normal Breath Sounds, No Accessory Muscle Use, Chest Non-Tender Cardiovascular: Normal Peripheral Pulses, Regular Rate, Rhythm, No Edema, No Gallop, No JVD, No Murmur, No Rub GI/Abdominal: Normal Bowel Sounds, Soft, Non-Tender, No Organomegaly, No Distention, No Abnormal Bruit, No Mass (Female) Exam: Deferred Rectal (Female) Exam: Deferred Neuro Exam (Abbreviated): Alert, Oriented, CN II-XII Intact, Normal Cognition, Normal Gait, Normal Reflexes, No Motor/Sensory Deficits Back Exam: Normal Inspection, Full Range of Motion, NT Extremities: Normal Inspection, Normal Range of Motion, Non-Tender, No Pedal Edema, Normal Capillary Refill Psychiatric: Anxious Skin Exam: Warm, Dry, Intact, Normal Color, No Rash Course - Vital Signs Last Recorded V/S: Last Vital Signs Temp 37.0 C 07/21/17 09:38 Pulse 78 07/21/17 09:38 Resp 18 07/21/17 09:38 BP 149/55 H 07/21/17 09:38 Pulse Ox 100 07/21/17 09:38 - Orders/Labs/Meds Orders: Active Orders 24 hr Category Date Time Status EKG Documentation Completion [RC] URGENT Care 07/21/17 10:06 Active Chest 1V Frontal [CR] Urgent Exams 07/21/17 10:06 Taken INFLUENZA A+B AG SCREEN [RM] Stat Lab 07/21/17 10:16 Ordered UA W/MICROSCOPIC [URIN] Stat Lab 07/21/17 10:25 Ordered Labs: Laboratory Tests 07/21/17 07/21/17 07/21/17 Range/Units 10:19 10:19 10:25 WBC 6.3 (5.0-10.0) 10^3/uL RBC 3.46 L (4.2-5.4) 10^6/uL Hgb 9.8 L D (12.0-16.0) g/dL Hct 29.9 L (37.0-47.0) % MCV 86.4 (80-100) fL MCH 28.3 (27.0-34.0) pg MCHC 32.8 L (33.0-35.0) g/dL Plt Count 314 (150-450) 10^3/uL Neut % (Auto) 85.5 H (42.2-75.2) % Lymph % (Auto) 5.7 L (20.5-50.1) % [place] % (Auto) 7.4 (2-8) % Eos % (Auto) 1.1 (1.0-3.0) % Baso % (Auto) 0.3 (0.0-1.0) % Sodium 132 L (135-145) mmol/L Potassium 3.6 (3.6-5.0) mmol/L Chloride 101 (101-111) mmol/L Carbon Dioxide 22.0 (21.0-31.0) mmol/L Anion Gap 12.6 BUN 10 (7-18) mg/dL Creatinine 0.5 L (0.6-1.3) mg/dL Est Cr Clr Drug Dosing 75.20 mL/min Estimated GFR (MDRD) > 60 BUN/Creatinine Ratio 20.00 Glucose 133 H (74-105) mg/dL Calcium 8.6 (8.4-10.2) mg/dl Total Bilirubin 0.6 (0.2-1.0) mg/dL AST 26 (10-42) IU/L ALT 12 (10-60) IU/L Alkaline Phosphatase 65 (42-121) IU/L Troponin I < 0.02 (0.00-0.02) ng/ml Total Protein 7.0 (6.7-8.2) g/dl Albumin 3.2 (3.2-5.5) g/dl Globulin 3.8 Albumin/Globulin Ratio 0.84 Urine Color Yellow (YELLOW) Urine Appearance Clear (CLEAR) Urine pH 6.5 (5.0-9.0) Ur Specific [place] 1.015 (1.005-1.030) Urine Protein 30 H (NEGATIVE) Urine Glucose (UA) Negative (NEGATIVE) Urine Ketones Negative (NEGATIVE) Urine Occult Blood Negative (NEGATIVE) Urine Nitrite Negative (NEGATIVE) Urine Bilirubin Negative (NEGATIVE) Urine Urobilinogen 1.0 (0.2-1.0) mg/dL Ur Leukocyte Esterase Trace H (NEGATIVE) Urine RBC 0-5 /HPF Urine WBC 0-5 (0-5/HPF) /HPF Ur Epithelial Cells Moderate H /HPF Urine Bacteria Few (0-FEW/HPF) /HPF Hyaline Casts Many H /LPF Departure - Departure Time of Disposition: 11:40 Disposition: Home, Self-Care 01 Condition: Fair Clinical Impression: Vertigo - Discharge Information Instructions: Vertigo, [id number], Dehydration, Elderly, [id number] Forms: ED Department Discharge Care Plan Goals: The patient and family were advised of the examination, EKG, X-ray and lab results during the visit. The patient was encourage to increase her oral fluid intake. If the patient has any additional symptoms or concerns, the patient should follow-up with her primary care facility or return to the emergency department. - My Orders Last 24 Hours: My Active Orders 07/21/17 10:06 EKG Documentation Completion [RC] URGENT Chest 1V Frontal [CR] Urgent 07/21/17 10:16 INFLUENZA A+B AG SCREEN [RM] Stat 07/21/17 10:25 UA W/MICROSCOPIC [URIN] Stat - Assessment/Plan Last 24 Hours: My Active Orders 07/21/17 10:06 EKG Documentation Completion [RC] URGENT Chest 1V Frontal [CR] Urgent 07/21/17 10:16 INFLUENZA A+B AG SCREEN [RM] Stat 07/21/17 10:25 UA W/MICROSCOPIC [URIN] Stat
[2017-07-21 10:51] LABS: ANION GAP 12.6; CHLORIDE,CL 101 mmol/L (101-111); SODIUM,NA 132 mmol/L (135-145)
--- NOTE | 2017-07-21 16:01 | EKG ---
07/21/2017 - [facility]ERESE [place] I reviewed the EKG and agree with the machine's reading. [facility] /[id number]
== END 2017-07-21 11:45 | disposition home or self-care (01) ==
LOC: DL.ED 09:35
DX: R42 Dizziness and giddiness (principal); I10 Essential (primary) hypertension; Z88.1 Allergy status to other antibiotic agents; Z88.5 Allergy status to narcotic agent; Z88.8 Allergy status to other drugs, medicaments and biological substances; Z79.899 Other long term (current) drug therapy; Z79.82 Long term (current) use of aspirin; Z87.891 Personal history of nicotine dependence
CPT/HCPCS: 36415; 71045; 80053; 81001; 84484; 85025; 87804; 93005; 93010; 99283; 99284

== ENCOUNTER 2017-08-30 08:13 | Emergency (ER) | payer OTHER, MEDICARE ==
[2017-08-30] MEDS ORDERED: Sodium Chloride 0.9% 10 ML Syringe FLUSH PRN (11:23)
[2017-08-30 11:30] VITALS: BP 122/46
[2017-08-30 12:03] LABS: CHLORIDE,CL 95 mmol/L (101-111); SODIUM,NA 127 mmol/L (135-145)
[2017-08-30] MEDS ORDERED: Iopamidol 612 MG/ML 75 ML Bottle IVPUSH ONE (12:11)
[2017-08-30] MEDS ORDERED: NS + KCl 20mEq/L 1,000 ML IV SCH (12:15)
--- NOTE | 2017-08-30 13:33 | CT ---
Clinical history: 72-year-old 146# female with chronic postoperative (cholecystectomy, hysterectomy, hernia repairs) ventral wall defect most recently CT 05 June 2017 exam who presents now, Hospital ED, with necrotic ulceration/suppurative drainage. Scan technique: Volume acquisition of data from the abdomen and pelvis obtained without oral contrast but during/after intravenous ministration 75 cc nonionic Isovue contrast while patient was lying sup ine on the Siemens multi slice CT scanner [place], [place]. All data a rchived in the PACS system for storage, reformatting axial/sagittal/coronal planes and study. Interpretation: Abnormal. 1. Large, midline, suprapubic "mesh" like foreign body described on previous exams 3 April and 2 [facility] 2018 is gone. 2. Reproducible large ventral wall defect measuring over 20.4 cm, from side to side on a plane throug h the kidneys, as noted on previous exam accommodating the anterior subcutaneous herniation of both l arge and small bowel loops. 3. No incarceration, strangulation or signs of mechanical bowel obstruction. 4. *New evidence of what appears to be anterior, infraumbilical, midline, lower abdominal abscess (ax ial scan slice #58) that communicates (draining) with the skin surface. Note: Immediately beneath abs cess there appears to be focal herniation (axial scan slice #62) of sigmoid colon. No current signs o f mechanical bowel obstruction. 5. No intraperitoneal pelvic or abdominal mass lesion. No mesenteric or retroperitoneal lymphadenopat hy. No ascites or free air. 6. Cholecystectomy. Liver, stomach, spleen, pancreas, adrenal glands and kidneys unremarkable. Normal urinary bladder. 7. Dense calcifications abdominal aorta (3.2 cm diameter aneurysm infrarenal abdominal aorta). No ret roperitoneal dissection. 8. Normal cardiac silhouette. Lung bases clear. CONCLUSION: Large ventral wall defect with apparent new suprapubic abscess (since ) delmi rowell to skin surface. Surgical mesh removed. No current signs of mechanical bowel obstruction.
--- NOTE | 2017-08-31 07:50 | EDM.PDOC ---
Scribed by Meeta Rivas 08/30/17 1543 for Quyen Bell NP ED HPI GENERAL MEDICAL PROBLEM - General Chief Complaint: Abdominal Pain Stated Complaint: HAVING BATHROOM ISSUES [id number] Time Seen by Provider: 08/30/17 11:26 Source of Information: Reports: Patient, RN, RN Notes Reviewed History Limitations: Reports: No Limitations - History of Present Illness INITIAL COMMENTS - FREE TEXT/NARRATIVE: Patient presents to the ER with complaint of open wound to the abdomen. She states she woke up this morning and smelled stool. Pain in the left upper and left quadrant all week. She has had fever and chills. She has had no chest pain , shortness of breath, nausea, vomiting, diarrhea or constipation. The hernia mesh dislodged which was found at [place]. The mesh was connected to the colon. Her procedure at [place] is scheduled for 09/03/17. Onset: Gradual Duration: Getting Worse Location: Reports: Abdomen Quality: Reports: Ache Severity: Moderate Improves with: Reports: None Worsens with: Reports: None Associated Symptoms: Reports: No Other Symptoms Lower Abdominal Pain Score (Numeric/FACES): 5 - Related Data Allergies Allergy/AdvReac Type Severity Reaction Status Date / Time clarithromycin Allergy Hives Verified 08/30/17 10:58 codeine Allergy Stomach Verified 08/30/17 10:58 Ache promethazine HCl Allergy Hives Verified 08/30/17 10:58 [From Phenergan] raloxifene Allergy Hives Verified 08/30/17 10:58 Home Meds: Home Meds Calcium Carb & Citrate/Vit D3 [Citracal + D ER] 1 tab PO BID 02/05/14 [History] Fish Oil/[place]-3 Fatty Acids [Fish Oil 1,000 MG] 1 cap PO BID 02/05/14 [History] Metoprolol Tartrate [Lopressor] 25 mg PO DAILY 02/05/14 [History] Multivitamin [Multi Vitamin Daily] 1 tab PO DAILY 02/05/14 [History] Omeprazole [Prilosec] 20 mg PO DAILY 02/05/14 [History] Alendronate [Fosamax] 1 tab PO WEEKLY 08/26/15 [History] Aspirin [Halfprin] 81 mg PO DAILY 08/26/15 [History] Chlorthalidone 12.5 mg PO DAILY 08/26/15 [History] Magnesium Oxide 200 mg PO BID 08/26/15 [History] amLODIPine [Norvasc] 10 mg PO DAILY 08/26/15 [History] Ciclopirox 1 applic TOP ASDIRECTED 05/07/16 [History] Docusate Sodium [Colace] 100 mg PO DAILY PRN 05/07/16 [History] azaTHIOprine [Imuran] 50 mg PO BID 05/07/16 [History] Lactulose 45 ml PO DAILY 07/09/16 [History] Past Medical History HEENT History: Reports: Impaired Vision, Other (See Below) Other HEENT History: 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 VENTRAL HERNIA. 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: Musculoskeletal History: Reports: Other (See Below) Other Musculoskeletal History: DEGENERATIVE JOINT DISEASE Neurological History: Reports: None Psychiatric History: Reports: Anxiety Endocrine/Metabolic History: Reports: Obesity/BMI 30+ Hematologic History: Reports: None Immunologic History: Reports: None Oncologic (Cancer) History: Reports: None Dermatologic History: Reports: Other (See Below) Other Dermatologic History: recent ingrown toenail R) great to removed, now having drng and discomfort - Infectious Disease History Infectious Disease History: Reports: Chicken Pox Other Infectious Disease History: doesn't remember - Past Surgical History Head Surgeries/Procedures: Reports: None GI Surgical History: Reports: Appendectomy, Cholecystectomy, Colonoscopy, EGD, Hernia, Abdominal, Hernia Repair/Other Female Surgical History: Reports: Section, Hysterectomy, Salpingo- Oophorectomy Social & Family History - Family History Family Medical History: Noncontributory HEENT: Reports: None Cardiac: Reports: Hypertension Respiratory: Reports: None GI: Reports: None : Reports: None OBGYN: Reports: None Musculoskeletal: Reports: SLE Neurological: Reports: None Psychiatric: Reports: None Endocrine/Metabolic: Reports: None Hematologic: Reports: None Immunologic: Reports: None Dermatologic: Reports: None Oncologic: Reports: None - Tobacco Use Smoking Status *Q: Former Smoker Used Tobacco, but Quit: Yes Month/Year Tobacco Last Used: ? - Caffeine Use Caffeine Use: Reports: None Other Caffeine Use: AVERAGE INTAKE 4 CUPS - Recreational Drug Use Recreational Drug Use: No ED ROS GENERAL - Review of Systems Review Of Systems: ROS reveals no pertinent complaints other than HPI. ED EXAM, GI/ABD - Physical Exam Exam: See Below Exam Limited By: No Limitations General Appearance: Alert, WD/WN, No Apparent Distress Eyes: Bilateral: Normal Appearance, EOMI Ears: Normal External Exam, Normal Canal, Hearing Grossly Normal, Normal TMs Nose: Normal Inspection, Normal Mucosa, No Blood Throat/Mouth: Normal Inspection, Normal Lips, Normal Teeth, Normal Gums, Normal Oropharynx, Normal Voice, No Airway Compromise Head: Atraumatic, Normocephalic Neck: Normal Inspection, Supple, Non-Tender, Full Range of Motion Respiratory/Chest: No Respiratory Distress, Lungs Clear, Normal Breath Sounds, No Accessory Muscle Use, Chest Non-Tender Cardiovascular: Normal Peripheral Pulses, Regular Rate, Rhythm, No Edema, No Gallop, No JVD, No Murmur, No Rub GI/Abdominal Exam: Other (3cm x 2cm necrotic wounddraining to middle abdomen which is foul smelling.) (Female) Exam: Deferred Rectal (Female) Exam: Deferred Back Exam: Normal Inspection, Full Range of Motion, NT Extremities: Normal Inspection Neurological: Alert, Oriented, CN II-XII Intact, Normal Cognition, Normal Gait, Normal Reflexes, No Motor/Sensory Deficits Psychiatric: Depressed Mood, Tearful Skin Exam: Other (see abdomen) Course - Vital Signs Last Recorded V/S: Last Vital Signs Temp 98.4 F 08/30/17 10:59 Pulse 88 08/30/17 10:59 Resp 18 08/30/17 10:59 BP 122/46 L 08/30/17 10:59 Pulse Ox 100 08/30/17 10:59 - Orders/Labs/Meds Orders: Active Orders 24 hr Category Date Time Status Peripheral IV Care [RC] . DIRECTED Care 08/30/17 11:24 Active CULTURE BLOOD [BC] Stat Lab 08/30/17 11:23 Results CULTURE BLOOD [BC] Stat Lab 08/30/17 11:26 Received CULTURE WOUND [RM] Stat Lab 08/30/17 11:41 Received UA W/MICROSCOPIC [URIN] Stat Lab 08/30/17 12:32 Ordered Blood Culture x2 Reflex Set [OM.PC] Stat Oth 08/30/17 11:23 Ordered Peripheral IV Insertion Adult [OM.PC] Stat Ot 08/30/17 11:24 Ordered Labs: Laboratory Tests 08/30/17 08/30/17 08/30/17 Range/Units 11:26 11:26 11:26 WBC 10.5 H (5.0-10.0) 10^3/uL RBC 3.05 L (4.2-5.4) 10^6/uL Hgb 8.2 L D (12.0-16.0) g/dL Hct 24.7 L (37.0-47.0) % MCV 81.0 D (80-100) fL MCH 26.9 L (27.0-34.0) pg MCHC 33.2 (33.0-35.0) g/dL Plt Count 422 D (150-450) 10^3/uL Neut % (Auto) 85.0 H (42.2-75.2) % Lymph % (Auto) 7.0 L (20.5-50.1) % [place] % (Auto) 7.6 (2-8) % Eos % (Auto) 0.3 L (1.0-3.0) % Baso % (Auto) 0.1 (0.0-1.0) % Sodium 127 L (135-145) mmol/L Potassium 2.8 L (3.6-5.0) mmol/L Chloride 95 L (101-111) mmol/L Carbon Dioxide 20.0 L (21.0-31.0) mmol/L Anion Gap 14.8 BUN 10 (7-18) mg/dL Creatinine 0.7 (0.6-1.3) mg/dL Est Cr Clr Drug Dosing 53.71 mL/min Estimated GFR (MDRD) > 60 BUN/Creatinine Ratio 14.28 Glucose 131 H (74-105) mg/dL Lactic Acid 1.3 (0.5-2.2) mmol/L Calcium 8.3 L (8.4-10.2) mg/dl Total Bilirubin 0.7 (0.2-1.0) mg/dL AST 20 (10-42) IU/L ALT 12 (10-60) IU/L Alkaline Phosphatase 78 (42-121) IU/L Total Protein 6.6 L (6.7-8.2) g/dl Albumin 2.7 L (3.2-5.5) g/dl Globulin 3.9 Albumin/Globulin Ratio 0.69 Urine Color (YELLOW) Urine Appearance (CLEAR) Urine pH (5.0-9.0) Ur Specific [place] (1.005-1.030) Urine Protein (NEGATIVE) Urine Glucose (UA) (NEGATIVE) Urine Ketones (NEGATIVE) Urine Occult Blood (NEGATIVE) Urine Nitrite (NEGATIVE) Urine Bilirubin (NEGATIVE) Urine Urobilinogen (0.2-1.0) mg/dL Ur Leukocyte Esterase (NEGATIVE) Urine RBC /HPF Urine WBC (0-5/HPF) /HPF Ur Epithelial Cells /HPF Amorphous Sediment (0/HPF) /HPF Urine Bacteria (0-FEW/HPF) /HPF Urine Mucus /LPF 08/30/17 Range/Units 12:32 WBC (5.0-10.0) 10^3/uL RBC (4.2-5.4) 10^6/uL Hgb (12.0-16.0) g/dL Hct (37.0-47.0) % MCV (80-100) fL MCH (27.0-34.0) pg MCHC (33.0-35.0) g/dL Plt Count (150-450) 10^3/uL Neut % (Auto) (42.2-75.2) % Lymph % (Auto) (20.5-50.1) % [place] % (Auto) (2-8) % Eos % (Auto) (1.0-3.0) % Baso % (Auto) (0.0-1.0) % Sodium (135-145) mmol/L Potassium (3.6-5.0) mmol/L Chloride (101-111) mmol/L Carbon Dioxide (21.0-31.0) mmol/L Anion Gap BUN (7-18) mg/dL Creatinine (0.6-1.3) mg/dL Est Cr Clr Drug Dosing mL/min Estimated GFR (MDRD) BUN/Creatinine Ratio Glucose (74-105) mg/dL Lactic Acid (0.5-2.2) mmol/L Calcium (8.4-10.2) mg/dl Total Bilirubin (0.2-1.0) mg/dL AST (10-42) IU/L ALT (10-60) IU/L Alkaline Phosphatase (42-121) IU/L Total Protein (6.7-8.2) g/dl Albumin (3.2-5.5) g/dl Globulin Albumin/Globulin Ratio Urine Color Yellow (YELLOW) Urine Appearance Slightly cloudy (CLEAR) Urine pH 7.0 (5.0-9.0) Ur Specific [place] 1.010 (1.005-1.030) Urine Protein Negative (NEGATIVE) Urine Glucose (UA) Negative (NEGATIVE) Urine Ketones Negative (NEGATIVE) Urine Occult Blood Negative (NEGATIVE) Urine Nitrite Negative (NEGATIVE) Urine Bilirubin Negative (NEGATIVE) Urine Urobilinogen 1.0 (0.2-1.0) mg/dL Ur Leukocyte Esterase Negative (NEGATIVE) Urine RBC 0-5 /HPF Urine WBC 0-5 (0-5/HPF) /HPF Ur Epithelial Cells Moderate H /HPF Amorphous Sediment Rare (0/HPF) /HPF Urine Bacteria Rare (0-FEW/HPF) /HPF Urine Mucus Rare /LPF Meds: Medications Discontinued Medications Generic Name Dose Route Start Last Admin Trade Name Freq PRN Reason Stop Dose Admin Potassium Chloride/Sodium Chloride 1,000 mls @ 100 mls/hr 08/30/17 12:15 12:25 Normal Saline With 20 Meq Kcl IV 100 mls/hr ASDIRECTED EMLIY Administration Iopamidol 75 ml 08/30/17 12:11 08/30/17 12:57 Isovue-300 (61%) IVPUSH 08/30/17 12:12 75 ml ONETIME ONE Administration Sodium Chloride 10 ml 08/30/17 11:23 08/30/17 12:03 Saline Flush FLUSH 10 ml ASDIRECTED PRN Administration Keep Vein Open - Radiology Interpretation Free Text/Narrative:: CT abdomen and pelvis: Large ventral wall defect with apparent new suprapubic abscess (since ) draining to skin surface. Surgical mesh removed. No current signs of mechanical bowel obstruction. See rad report. - Re-Assessments/Exams Free Text/Narrative Re-Assessment/Exam: 08/31/17 07:47 Dicussed the patient case with Dr. Andrade at [place]. He states he is happy to accept the patient for direct admit. He states it is not necessary to transfer the patient tonight by ambulance, but she can travel by private vehicle tomorrow morning. He states an ostomy appliance over the wound or a wet to dry dressing would be acceptable. This was discussed with the patient and daughter who agree and state understanding. Departure - Departure Time of Disposition: 15:38 Disposition: DC/Tfer to Acute Hospital 02 Condition: Fair Clinical Impression: Colonic fistula, Abscess - Discharge Information Referrals: Kamran Dunwaay [Primary Care Provider] - Forms: ED Department Discharge Additional Instructions: Travel to [place] per private vehicle tomorrow. - My Orders Last 24 Hours: My Active Orders 08/30/17 11:23 CULTURE BLOOD [BC] Stat Blood Culture x2 Reflex Set [OM.PC] Stat 08/30/17 11:24 Peripheral IV Care [RC] . DIRECTED Peripheral IV Insertion Adult [OM.PC] Stat 08/30/17 11:26 CULTURE BLOOD [BC] Stat 08/30/17 11:41 CULTURE WOUND [RM] Stat 08/30/17 12:32 UA W/MICROSCOPIC [URIN] Stat - Assessment/Plan Last 24 Hours: My Active Orders 08/30/17 11:23 CULTURE BLOOD [BC] Stat Blood Culture x2 Reflex Set [OM.PC] Stat 08/30/17 11:24 Peripheral IV Care [RC] . DIRECTED Peripheral IV Insertion Adult [OM.PC] Stat 08/30/17 11:26 CULTURE BLOOD [BC] Stat 08/30/17 11:41 CULTURE WOUND [RM] Stat 08/30/17 12:32 UA W/MICROSCOPIC [URIN] Stat I have read and agree with the documentation that has been completed regarding this visit. By signing this record, I attest that the documentation was completed in my physical presence and is an accurate record of the encounter.
== END 2017-08-30 15:53 ==
LOC: DL.ED 08:13
DX: K63.2 Fistula of intestine (principal); E66.9 Obesity, unspecified; I10 Essential (primary) hypertension; Z87.891 Personal history of nicotine dependence; Z88.1 Allergy status to other antibiotic agents; Z88.5 Allergy status to narcotic agent; Z88.8 Allergy status to other drugs, medicaments and biological substances; Z79.899 Other long term (current) drug therapy
CPT/HCPCS: 36415; 74177; 80053; 81001; 83605; 85025; 87040; 87070; 87077; 87186; 96365; 96366; 99285; J3480; J7050; Q9967

== ENCOUNTER 2017-10-20 21:42 | Emergency (ER) | payer MEDICARE, OTHER | END 2017-10-20 23:16 | disposition left against medical advice (07) | LOC: DL.ED 21:42 | DX: Z53.21 Procedure and treatment not carried out due to patient leaving prior to being seen by health care provider (principal) ==

== ENCOUNTER 2017-10-21 16:32 | Observation (INO) | payer OTHER, MEDICARE ==
[2017-10-21] MEDS ORDERED: Docusate Sodium 100 MG Cap PO PRN (17:01)
[2017-10-21] MEDS ORDERED: ALENDRONATE PO SCH (17:15)
[2017-10-21] MEDS ORDERED: Non-Formulary Medication 1 Each (Ciclopirox [Ciclopirox] 1 APPLIC) TOP SCH (17:15)
--- NOTE | 2017-10-21 17:32 | PCM.HP ---
H&P History of Present Illness - General Date of Service: 10/21/17 Admit Problem/Dx: Admission Diagnosis/Problem Admission Diagnosis/Problem Hypokalemia Source of Information: Patient History Limitations: Reports: No Limitations, Altered Mental Status - History of Present Illness Initial Comments - Free Text/Narative: Patient is 72 y/o F with complicated medical history including hypertension, hyperlipidemia, Ventral hernia, Sjogren syndrome, Chronic autoimmune hepatitis, deficiency anemia. She recently had abdominal surgery for abdominal abscess and Ventral at [facility] and was discharge on 10/16. Patient was referred fron internal medicine clinic for hospitalization fater she presented there for porr oral intake, generalized weakness since discharge. Labs in the clinic showed K;2.8, Na 133 alb 2.2hb 9.4wbc 4.9. She was sent for admission for rehydration and electrolyte replacement. Patient was accompamnied by daughter. the daughter reports she had not been able to eat since discharge. She is increasing growing weak. Patient reports nausea and occasional vomiting. Vomitted 2x 3 days ago. She notes occasional fever and chills but has been afebrile today. Stool has been loose since dsurgery and was discharge on imodium. She denies abdominal pain. Onset of Symptoms: Reports: Gradual Duration of Symptoms: Reports: Week(s): Location: Reports: Abdomen, Generalized Improves with: Reports: None Worsens with: Reports: None Context: Reports: Activity/Exercise Associated Symptoms: Reports: No Other Symptoms, Nausea/Vomiting - Related Data Allergies/Adverse Reactions: Allergies Allergy/AdvReac Type Severity Reaction Status Date / Time clarithromycin Allergy Hives Verified 10/21/17 17:25 codeine Allergy Stomach Verified 10/21/17 17:25 Ache promethazine HCl Allergy Hives Verified 10/21/17 17:25 [From Phenergan] raloxifene Allergy Hives Verified 10/21/17 17:25 Home Medications: Home Meds Calcium Carb & Citrate/Vit D3 [Citracal + D ER] 1 tab PO BID 02/05/14 [History] Fish Oil/[place]-3 Fatty Acids [Fish Oil 1,000 MG] 1 cap PO BID 02/05/14 [History] Metoprolol Tartrate [Lopressor] 25 mg PO DAILY 02/05/14 [History] Multivitamin [Multi Vitamin Daily] 1 tab PO DAILY 02/05/14 [History] Omeprazole [Prilosec] 20 mg PO DAILY 02/05/14 [History] Alendronate [Fosamax] 1 tab PO WEEKLY 08/26/15 [History] Aspirin [Halfprin] 81 mg PO DAILY 08/26/15 [History] Chlorthalidone 12.5 mg PO DAILY 08/26/15 [History] Magnesium Oxide 200 mg PO BID 08/26/15 [History] amLODIPine [Norvasc] 10 mg PO DAILY 08/26/15 [History] Ciclopirox 1 applic TOP ASDIRECTED 05/07/16 [History] Docusate Sodium [Colace] 100 mg PO DAILY PRN 05/07/16 [History] azaTHIOprine [Imuran] 50 mg PO BID 05/07/16 [History] Lactulose 45 ml PO DAILY 07/09/16 [History] Past Medical History HEENT History: Reports: Impaired Vision, Other (See Below) Other HEENT History: 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 VENTRAL HERNIA. 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: Musculoskeletal History: Reports: Other (See Below) Other Musculoskeletal History: DEGENERATIVE JOINT DISEASE Neurological History: Reports: None Psychiatric History: Reports: Anxiety Endocrine/Metabolic History: Reports: Obesity/BMI 30+ Hematologic History: Reports: None Immunologic History: Reports: None Oncologic (Cancer) History: Reports: None Dermatologic History: Reports: Other (See Below) Other Dermatologic History: recent ingrown toenail R) great to removed, now having drng and discomfort - Infectious Disease History Infectious Disease History: Reports: Chicken Pox Other Infectious Disease History: doesn't remember - Past Surgical History Head Surgeries/Procedures: Reports: None GI Surgical History: Reports: Appendectomy, Cholecystectomy, Colonoscopy, EGD, Hernia, Abdominal, Hernia Repair/Other Female Surgical History: Reports: Section, Hysterectomy, Salpingo- Oophorectomy Social & Family History - Family History Family Medical History: Noncontributory HEENT: Reports: None Cardiac: Reports: Hypertension Respiratory: Reports: None GI: Reports: None : Reports: None OBGYN: Reports: None Musculoskeletal: Reports: SLE Neurological: Reports: None Psychiatric: Reports: None Endocrine/Metabolic: Reports: None Hematologic: Reports: None Immunologic: Reports: None Dermatologic: Reports: None Oncologic: Reports: None - Caffeine Use Caffeine Use: Reports: None Other Caffeine Use: AVERAGE INTAKE 4 CUPS H&P Review of Systems - Review of Systems: Review Of Systems: See Below General: Reports: Malaise, Weakness, Fatigue, Decreased Appetite HEENT: Reports: No Symptoms Pulmonary: Reports: No Symptoms Cardiovascular: Reports: No Symptoms Gastrointestinal: Reports: Anorexia, Diarrhea, Decreased Appetite, Nausea, Vomiting Genitourinary: Reports: No Symptoms Musculoskeletal: Reports: No Symptoms Skin: Reports: No Symptoms Psychiatric: Reports: No Symptoms Neurological: Reports: No Symptoms Hematologic/Lymphatic: Reports: No Symptoms Immunologic: Reports: No Symptoms Exam - Exam Exam: See Below - Exam Quality Assessment: DVT Prophylaxis General: Alert, Oriented, Cooperative HEENT: PERRLA, Hearing Intact, Mucosa Moist & [place], Nares Patent, Normal Nasal Septum, Posterior Pharynx Clear, Conjunctiva Clear, EOMI, EACs Clear, TMs Clear Neck: Supple, Trachea Midline, 2 Lungs: Clear to Auscultation, Normal Respiratory Effort Cardiovascular: Regular Rate, Regular Rhythm GI/Abdominal Exam: Normal Bowel Sounds, Soft, Non-Tender, No Organomegaly, No Distention, No Abnormal Bruit, No Mass, Pelvis Stable, Other (surgical incision noted) (Female) Exam: Normal External Exam, Normal Speculum Exam, Normal Bimanual Exam Rectal (Female) Exam: Normal Exam, Normal Rectal Tone Back Exam: Normal Inspection, Full Range of Motion, NT Extremities: Normal Inspection, Normal Range of Motion, Non-Tender, No Pedal Edema, Normal Capillary Refill Skin: Warm, Dry, Intact Neurological: Cranial Nerves Intact, Reflexes Equal Bilateral Neuro Extensive - Mental Status: Alert, Oriented x3, Normal Mood/Affect, Normal Cognition Neuro Extensive - Motor, Sensory, Reflexes: CN II-XII Intact, Normal Gait, Normal Reflexes Psychiatric: Alert, Normal Affect, Normal Mood - Problem List (1) Weakness generalized SNOMED Code(s): 99906854 ICD Code: R53.1 - WEAKNESS Status: Acute Current Visit: Yes (2) Abdominal pain SNOMED Code(s): 97998294 ICD Code: R10.9 - UNSPECIFIED ABDOMINAL PAIN Status: Acute Current Visit : No Qualifiers: Abdominal location: generalized Qualified Code(s): R10.84 - Generalized abdominal pain (3) Poor appetite SNOMED Code(s): 29076623 ICD Code: R63.0 - ANOREXIA Status: Acute Current Visit: Yes (4) Poor appetite SNOMED Code(s): 93645704 ICD Code: R63.0 - ANOREXIA Status: Acute Current Visit: Yes (5) Hypokalemia SNOMED Code(s): 59314122 ICD Code: E87.6 - HYPOKALEMIA Status: Acute Current Visit: Yes (6) Dehydration SNOMED Code(s): 21220386 ICD Code: E86.0 - DEHYDRATION Status: Acute Current Visit: Yes Problem List Initiated/Reviewed/Updated: Yes Orders Last 24hrs: Active Orders 24 hr Category Date Time Status Patient Status [ADT] Routine ADT 10/21/17 17:04 Ordered Ambulate [RC] ASDIRECTED Care 10/21/17 17:04 Ordered EKG Documentation Completion [RC] ROUTINE Care 10/21/17 17:04 Ordered Intake and Output [RC] QSHIFT Care 10/21/17 17:09 Ordered Oxygen Therapy [RC] PRN Care 10/21/17 17:04 Ordered VTE/DVT Education [RC] PER UNIT ROUTINE Care 10/21/17 17:04 Ordered Vital Signs [RC] Q4H Care 10/21/17 17:04 Ordered OT Evaluation and Treatment [CONS] Routine Cons 10/21/17 17:04 Ordered PT Evaluation and Treatment [CONS] Routine Cons 10/21/17 17:04 Ordered Regular Diet [DIET] Diet 10/21/17 Dinner Ordered BASIC METABOLIC PANEL,BMP [CHEM] Routine Lab 10/21/17 17:04 Ordered CBC WITH AUTO DIFF [HEME] Routine Lab 10/21/17 17:04 Ordered MAGNESIUM [CHEM] Routine Lab 10/21/17 17:04 Ordered PHOSPHORUS [CHEM] Routine Lab 10/21/17 17:04 Ordered Alendronate [Fosamax] Med 10/21/17 17:15 Ordered 1 tab PO WEEKLY Aspirin [Halfprin] Med 10/22/17 09:00 Ordered 81 mg PO DAILY Calcium Carb & Citrate/Vit D3 [Citracal + D ER] Med 10/21/17 21:00 Ordered 1 tab PO BID Chlorthalidone Med 10/22/17 09:00 Ordered 12.5 mg PO DAILY Ciclopirox [Ciclopirox] Med 10/21/17 17:15 Ordered 1 applic TOP ASDIRECTED Docusate Sodium [Colace] Med 10/21/17 17:01 Ordered 100 mg PO DAILY PRN Fish Oil/[place]-3 Fatty Acids [Fish Oil 1,000 MG] Med 10/21/17 21:00 Ordered 1 cap PO BID Heparin Sodium Med 10/21/17 17:15 Ordered 5,000 units SUBCUT Q12H Metoprolol Tartrate [Lopressor] Med 10/22/17 09:00 Ordered 25 mg PO DAILY Multivitamin [Multi-Vitamin Daily] Med 10/22/17 09:00 Ordered 1 tab PO DAILY Omeprazole Med 10/22/17 09:00 Ordered 20 mg PO DAILY Sodium Chloride 0.9% @ 125 MLS/HR (1000ml) Med 10/21/17 17:15 Ordered Sodium Chloride 0.9% [Normal Saline] 1,000 ml IV ASDIRECTED amLODIPine [Norvasc] Med 10/22/17 09:00 Ordered 10 mg PO DAILY azaTHIOprine [Imuran] Med 10/21/17 21:00 Ordered 50 mg PO BID Resuscitation Status Routine Resus Stat 10/21/17 17:04 Ordered Assessment/Plan Comment:: Hypokalemia -Patient presented with K 2.8 -will replace IV -recheck level after replacement Mild hyponatremia -Na 133 -this should improve with adequate hydration Hypoalbuminemia -this is due to poor intake -should improve following improvement in eating Dehydration -IVF Poor oral appetite -encourage oral intake -General diet -nutritional supplement Generalized weakness -PT/OT Chronic iron deficiency anemia -continue home medication HTN -cont. home meds -monitor BP mary jane [place] -continue home meds General diet Full code
[2017-10-21] MEDS ORDERED: Sodium Chloride 0.9% 10 ML Syringe FLUSH PRN (17:41)
[2017-10-21] MEDS: Sodium Chloride 0.9% 1,000 ML IV SCH (18:34)
[2017-10-21] MEDS: Potassium Chloride 20 MEQ in Premix Bag 1 BAG IV SCH ×2 (18:34→22:40)
[2017-10-21 19:00] LABS: ANION GAP 8.9; CHLORIDE,CL 104 mmol/L (101-111); SODIUM,NA 132 mmol/L (135-145)
[2017-10-21] MEDS: Heparin Sodium 5,000 Units/ML Vial SUBCUT SCH (19:21)
[2017-10-21] MEDS ORDERED: Non-Formulary Medication 1 Each (Fish Oil/Omega-3 Fatty Acids [Fish Oil 1,000 Mg] 1 CAP) PO SCH (21:00)
[2017-10-21] MEDS: Zolpidem 5 MG Tab PO PRN (22:39)
[2017-10-21] MEDS: Loperamide 2 MG Cap PO PRN (22:39)
[2017-10-21] MEDS: Calcium Carbonate/Vitamin D3 1250 MG-200 Unit Tab PO SCH (22:39)
[2017-10-22] MEDS: Potassium Chloride 20 MEQ in Premix Bag 1 BAG IV SCH (03:15)
[2017-10-22] MEDS: Omeprazole 20 MG Cap.CR PO SCH (05:22)
[2017-10-22] MEDS: Loperamide 2 MG Cap PO PRN ×3 (05:22→23:50)
[2017-10-22] MEDS: Heparin Sodium 5,000 Units/ML Vial SUBCUT SCH ×2 (05:22→18:20)
[2017-10-22] MEDS: Sodium Chloride 0.9% 1,000 ML IV SCH (05:34)
[2017-10-22] MEDS: Multivitamins,Therapeutic Tab PO SCH (08:27)
[2017-10-22] MEDS: Aspirin 81 MG Tab.EC PO SCH (08:27)
[2017-10-22] MEDS: Chlorthalidone 25 MG Tab PO SCH (08:27)
[2017-10-22] MEDS: Calcium Carbonate/Vitamin D3 1250 MG-200 Unit Tab PO SCH ×2 (08:27→20:25)
[2017-10-22] MEDS: amLODIPine 5 MG Tab PO SCH (08:28)
[2017-10-22] MEDS: Metoprolol Tartrate 25 MG Tab PO SCH (08:28)
[2017-10-22 10:59] LABS: ANION GAP 10.4; CHLORIDE,CL 111 mmol/L (101-111); SODIUM,NA 136 mmol/L (135-145)
[2017-10-22] MEDS ORDERED: Potassium Chloride 10 MEQ Tab.ER PO ONE (11:25)
--- NOTE | 2017-10-22 11:28 | PCM.PN ---
- General Info Date of Service: 10/22/17 Admission Dx/Problem (Free Text): Admission Diagnosis/Problem Admission Diagnosis/Problem Hypokalemia Subjective Update: feeling better, no n/v had some breakfast no associated abd pain - Review of Systems General: Reports: Weakness. Denies: Fever Pulmonary: Denies: Shortness of Breath Cardiovascular: Denies: Chest Pain Neurological: Denies: Confusion - Patient Data Vitals - Most Recent: Last Vital Signs Temp 37.1 C 10/22/17 08:13 Pulse 85 10/22/17 08:28 Resp 20 10/22/17 08:13 BP 116/43 L 10/22/17 08:28 Pulse Ox 100 10/22/17 08:13 Weight - Most Recent: 54.091 kg I&O - Last 24 Hours: Intake & Output 10/21/17 10/22/17 10/22/17 22:59 06:59 14:59 Intake Total 150 1400 100 Output Total 100 Balance 150 1400 0 Lab Results Last 24 Hours: Laboratory Results - last 24 hr 10/21/17 10/21/17 10/21/17 Range/Units 18:30 18:30 18:30 WBC 7.8 (5.0-10.0) 10^3/uL RBC 3.12 L (4.2-5.4) 10^6/uL Hgb 8.6 L (12.0-16.0) g/dL Hct 27.2 L (37.0-47.0) % MCV 87.2 D (80-100) fL MCH 27.6 (27.0-34.0) pg MCHC 31.6 L (33.0-35.0) g/dL Plt Count 356 (150-450) 10^3/uL Neut % (Auto) 72.7 (42.2-75.2) % Lymph % (Auto) 16.8 L (20.5-50.1) % [place] % (Auto) 9.1 H (2-8) % Eos % (Auto) 1.0 (1.0-3.0) % Baso % (Auto) 0.4 (0.0-1.0) % Sodium 132 L (135-145) mmol/L Potassium 2.9 L (3.6-5.0) mmol/L Chloride 104 (101-111) mmol/L Carbon Dioxide 22.0 (21.0-31.0) mmol/L Anion Gap 8.9 BUN 11 (7-18) mg/dL Creatinine 0.7 (0.6-1.3) mg/dL Est Cr Clr Drug Dosing 53.71 mL/min Estimated GFR (MDRD) > 60 Glucose 137 H (74-105) mg/dL Calcium 8.2 L (8.4-10.2) mg/dl Phosphorus 3.3 (2.5-4.6) mg/dL Magnesium 1.6 L (1.8-2.5) mg/dL Total Bilirubin 0.4 (0.2-1.0) mg/dL Direct Bilirubin 0.1 (0.0-0.2) mg/dL Indirect Bilirubin 0.3 AST 24 (10-42) IU/L ALT 18 (10-60) IU/L Alkaline Phosphatase 161 H (42-121) IU/L Total Protein 6.1 L (6.7-8.2) g/dl Albumin 2.3 L (3.2-5.5) g/dl Globulin 3.8 Albumin/Globulin Ratio 0.61 10/22/17 10/22/17 Range/Units 10:32 10:32 WBC 6.6 (5.0-10.0) 10^3/uL RBC 2.95 L (4.2-5.4) 10^6/uL Hgb 8.2 L (12.0-16.0) g/dL Hct 26.1 L (37.0-47.0) % MCV 88.5 (80-100) fL MCH 27.8 (27.0-34.0) pg MCHC 31.4 L (33.0-35.0) g/dL Plt Count 295 (150-450) 10^3/uL Neut % (Auto) 71.2 (42.2-75.2) % Lymph % (Auto) 16.8 L (20.5-50.1) % [place] % (Auto) 9.7 H (2-8) % Eos % (Auto) 1.7 (1.0-3.0) % Baso % (Auto) 0.6 (0.0-1.0) % Sodium 136 (135-145) mmol/L Potassium 3.4 L (3.6-5.0) mmol/L Chloride 111 (101-111) mmol/L Carbon Dioxide 18.0 L (21.0-31.0) mmol/L Anion Gap 10.4 BUN 7 (7-18) mg/dL Creatinine 0.6 (0.6-1.3) mg/dL Est Cr Clr Drug Dosing 62.67 mL/min Estimated GFR (MDRD) > 60 Glucose 119 H (74-105) mg/dL Calcium 8.1 L (8.4-10.2) mg/dl Phosphorus 2.7 (2.5-4.6) mg/dL Magnesium 1.6 L (1.8-2.5) mg/dL Total Bilirubin (0.2-1.0) mg/dL Direct Bilirubin (0.0-0.2) mg/dL Indirect Bilirubin AST (10-42) IU/L ALT (10-60) IU/L Alkaline Phosphatase (42-121) IU/L Total Protein (6.7-8.2) g/dl Albumin (3.2-5.5) g/dl Globulin Albumin/Globulin Ratio Med Orders - Current: Current Medications Amlodipine Besylate (Norvasc) 10 mg PO DAILY [facility] Last Admin: 10/22/17 08:28 Dose: 10 mg Aspirin (Halfprin) 81 mg PO DAILY [facility] Last Admin: 10/22/17 08:27 Dose: 81 mg Azathioprine (Imuran) 50 mg PO BID [facility] Last Admin: 10/22/17 08:26 Dose: 50 mg Calcium Carbonate (Calcium Carbonate/Vitamin D 1250 Mg-200 Unit) 1 tab PO BID [facility] Last Admin: 10/22/17 08:27 Dose: 1 tab Chlorthalidone (Chlorthalidone) 12.5 mg PO DAILY [facility] Last Admin: 10/22/17 08:27 Dose: 12.5 mg Docusate Sodium (Colace) 100 mg PO DAILY PRN PRN Reason: Constipation Heparin Sodium (Porcine) (Heparin Sodium) 5,000 units SUBCUT Q12H [facility] Last Admin: 10/22/17 05:22 Dose: 5,000 units Loperamide HCl (Imodium) 2 mg PO Q6H PRN PRN Reason: Diarrhea Last Admin: 10/22/17 05:22 Dose: 2 mg Magnesium Oxide (Magnesium Oxide) [facility] [place] Metoprolol Tartrate (Lopressor) 25 mg PO DAILY [facility] Last Admin: 10/22/17 08:28 Dose: 25 mg Multivitamins (Thera) 1 each PO DAILY [facility] Last Admin: 10/22/17 08:27 Dose: 1 each Non-Formulary Medication (Alendronate [Fosamax]) 1 tab PO WEEKLY [facility] Non-Formulary Medication (Ciclopirox [Ciclopirox]) 1 applic TOP ASDIRECTED [facility] Non-Formulary Medication (Fish Oil/[place]-3 Fatty Acids [Fish Oil 1,000 Mg]) 1 cap PO BID [facility] Omeprazole (Omeprazole) 20 mg PO ACBRK [facility] Last Admin: 10/22/17 05:22 Dose: 20 mg Potassium Chloride (Klor-Con 10) 40 meq PO ONETIME ONE Stop: 10/22/17 11:26 Sodium Chloride (Saline Flush) 10 ml FLUSH ASDIRECTED PRN PRN Reason: Keep Vein Open Zolpidem Tartrate (Ambien) 5 mg PO BEDTIME PRN PRN Reason: Sleep Last Admin: 10/21/17 22:39 Dose: 5 mg Discontinued Medications Sodium Chloride (Normal Saline) 1,000 mls @ 125 mls/hr IV ASDIRECTED [facility] Last Admin: 10/22/17 05:34 Dose: 125 mls/hr Potassium Chloride 20 meq/ (Premix) 100 mls @ 50 mls/hr IV Q2H [facility] Stop: 10/21/17 21:44 Last Admin: 10/22/17 03:15 Dose: Not Given - Exam General: Alert, Oriented Neck: Supple Lungs: Clear to Auscultation, Normal Respiratory Effort Cardiovascular: Regular Rate, Regular Rhythm GI/Abdominal Exam: Normal Bowel Sounds, Soft, Non-Tender Extremities: No Pedal Edema - Problem List Review Problem List Initiated/Reviewed/Updated: Yes - My Orders Last 24 Hours: My Active Orders 10/21/17 21:25 Loperamide [Imodium] 2 mg PO Q6H PRN 10/21/17 21:37 Zolpidem [Ambien] 5 mg PO BEDTIME PRN 10/22/17 11:25 Potassium Chloride [Klor-Con 10] 40 meq PO ONETIME ONE 10/22/17 11:30 Magnesium Oxide 250 mg PO BIDM - Plan Plan:: Hypokalemia -Patient presented with K 2.8 improved cont PO supplement recheck in AM Mild hyponatremia improved with adequate hydration stop IVF Hypoalbuminemia -this is due to poor intake -should improve following improvement in eating Dehydration resolved stop IVF Poor oral appetite -encourage oral intake -General diet -nutritional supplement Generalized weakness -PT/OT Chronic iron deficiency anemia -continue home medication HTN -cont. norvasc, metoprolol -monitor BP mary jane HLD -continue home meds General diet Full code
[2017-10-22] MEDS: Zolpidem 5 MG Tab PO PRN (21:43)
[2017-10-23] MEDS: Omeprazole 20 MG Cap.CR PO SCH (06:21)
[2017-10-23] MEDS: Heparin Sodium 5,000 Units/ML Vial SUBCUT SCH (06:27)
[2017-10-23] MEDS: Loperamide 2 MG Cap PO PRN (06:37)
[2017-10-23 06:58] LABS: ANION GAP 11.8; CHLORIDE,CL 111 mmol/L (101-111); SODIUM,NA 137 mmol/L (135-145)
--- NOTE | 2017-10-23 11:41 | PCM.DCSUM1 ---
Discharge Summary - Hospital Course Free Text/Narrative:: Patient is 72 y/o F with complicated medical history including hypertension, hyperlipidemia, Ventral hernia, Sjogren syndrome, Chronic autoimmune hepatitis, deficiency anemia. She recently had abdominal surgery for abdominal abscess and Ventral at [facility] and was discharge on 10/16. Patient was referred fron internal medicine clinic for hospitalization fater she presented there for porr oral intake, generalized weakness since discharge. Labs in the clinic showed K;2.8, Na 133 alb 2.2hb 9.4wbc 4.9. She was sent for admission for rehydration and electrolyte replacement. Hypokalemia -Patient presented with K 2.8 improved cont PO supplement Mild hyponatremia improved with adequate hydration stopped IVF Hypoalbuminemia -this is due to poor intake -should improve following improvement in eating Dehydration resolved with IVF Poor oral appetite -encourage oral intake -General diet -nutritional supplement Generalized weakness -PT/OT Chronic iron deficiency anemia -continue home medication HTN -cont. norvasc, metoprolol -monitor BP closley HLD -continue home meds will transfer to swing bed for further pt/ot and wound care General diet Diagnosis: Stroke: No - Discharge Data Discharge Date: 10/23/17 Discharge Disposition: DC/Tfer W/I Hosp To Swing Condition: Good - Patient Summary/Data Consults: Consultations 10/21/17 17:04 OT Evaluation and Treatment [CONS] Routine PT Evaluation and Treatment [CONS] Routine 10/21/17 17:47 Consult to Wound Care Services [CONS] Routine - Patient Instructions Diet: Usual Diet as Tolerated Activity: As Tolerated - Discharge Plan *PRESCRIPTION DRUG MONITORING PROGRAM REVIEWED*: Not Applicable *COPY OF PRESCRIPTION DRUG MONITORING REPORT IN PATIENT GHASSAN: Not Applicable Home Medications: Home Meds Calcium Carb & Citrate/Vit D3 [Citracal + D ER] 1 tab PO BID 02/05/14 [History] Multivitamin [Multi-Vitamin Daily] 1 tab PO DAILY 02/05/14 [History] Omeprazole [Prilosec] 20 mg PO DAILY 02/05/14 [History] Aspirin [Halfprin] 81 mg PO DAILY 08/26/15 [History] Chlorthalidone 12.5 mg PO DAILY 08/26/15 [History] Magnesium Oxide 200 mg PO BID 08/26/15 [History] amLODIPine [Norvasc] 5 mg PO DAILY 08/26/15 [History] Docusate Sodium [Colace] 100 mg PO BID PRN 05/07/16 [History] Ferrous Fumarate 324 mg PO BID 10/21/17 [History] Metoprolol Succinate [Toprol XL 50mg] 50 mg PO DAILY 10/21/17 [History] Potassium Chloride [Klor-Con 10] 10 meq PO DAILY 10/21/17 [History] Heparin Sodium 5,000 units SUBCUT Q12H vial 10/23/17 [Rx] Loperamide [Imodium] 2 mg PO TID cap 10/23/17 [Rx] Metoprolol Tartrate [Lopressor] 25 mg PO DAILY tablet 10/23/17 [Rx] azaTHIOprine [Imuran] 50 mg PO BID tablet 10/23/17 [Rx] - Discharge Summary/Plan Comment DC Time >30 min.: No - General Info Date of Service: 10/23/17 Subjective Update: feeling better, Still low oral intake but had some breakfast no associated abd pain No fever, chills. No redness around the abdominal wound. - Review of Systems General: Reports: Weakness. Denies: Fever Pulmonary: Denies: Shortness of Breath Cardiovascular: Denies: Chest Pain Gastrointestinal: Denies: Abdominal Pain Genitourinary: Denies: Dysuria Neurological: Denies: Confusion - Patient Data Vitals - Most Recent: Last Vital Signs Temp 37.0 C 10/23/17 07:26 Pulse 98 10/23/17 07:26 Resp 20 10/23/17 07:26 BP 132/35 L 10/23/17 07:26 Pulse Ox 100 10/23/17 07:26 Weight - Most Recent: 54.613 kg I&O - Last 24 hours: Intake & Output 10/22/17 10/23/17 10/23/17 22:59 06:59 14:59 Intake Total 100 400 200 Balance 100 400 200 Lab Results - Last 24 hrs: Laboratory Results - last 24 hr 10/23/17 10/23/17 Range/Units 06:26 06:26 WBC 8.6 (5.0-10.0) 10^3/uL RBC 3.25 L (4.2-5.4) 10^6/uL Hgb 9.0 L (12.0-16.0) g/dL Hct 28.6 L (37.0-47.0) % MCV 88.0 (80-100) fL MCH 27.7 (27.0-34.0) pg MCHC 31.5 L (33.0-35.0) g/dL Plt Count 340 (150-450) 10^3/uL Neut % (Auto) 71.7 (42.2-75.2) % Lymph % (Auto) 18.1 L (20.5-50.1) % [place] % (Auto) 8.2 H (2-8) % Eos % (Auto) 1.5 (1.0-3.0) % Baso % (Auto) 0.5 (0.0-1.0) % Sodium 137 (135-145) mmol/L Potassium 3.8 (3.6-5.0) mmol/L Chloride 111 (101-111) mmol/L Carbon Dioxide 18.0 L (21.0-31.0) mmol/L Anion Gap 11.8 BUN 5 L (7-18) mg/dL Creatinine 0.6 (0.6-1.3) mg/dL Est Cr Clr Drug Dosing 62.67 mL/min Estimated GFR (MDRD) > 60 Glucose 122 H (74-105) mg/dL Calcium 8.5 (8.4-10.2) mg/dl Phosphorus 3.2 (2.5-4.6) mg/dL Magnesium 1.8 (1.8-2.5) mg/dL Med Orders - Current: Current Medications Amlodipine Besylate (Norvasc) 10 mg PO DAILY [facility] Last Admin: 10/22/17 08:28 Dose: 10 mg Aspirin (Halfprin) 81 mg PO DAILY [facility] Last Admin: 10/22/17 08:27 Dose: 81 mg Azathioprine (Imuran) 50 mg PO BID [facility] Last Admin: 10/22/17 20:25 Dose: 50 mg Calcium Carbonate (Calcium Carbonate/Vitamin D 1250 Mg-200 Unit) 1 tab PO BID [facility] Last Admin: 10/22/17 20:25 Dose: 1 tab Chlorthalidone (Chlorthalidone) 12.5 mg PO DAILY [facility] Last Admin: 10/22/17 08:27 Dose: 12.5 mg Docusate Sodium (Colace) 100 mg PO DAILY PRN PRN Reason: Constipation Heparin Sodium (Porcine) (Heparin Sodium) 5,000 units SUBCUT Q12H [facility] Last Admin: 10/23/17 06:27 Dose: 5,000 units Loperamide HCl (Imodium) 2 mg PO TID [facility] Magnesium Oxide (Magnesium Oxide) 250 mg PO BIDM [facility] Last Admin: 10/22/17 18:20 Dose: 250 mg Metoprolol Tartrate (Lopressor) 25 mg PO DAILY [facility] Last Admin: 10/22/17 08:28 Dose: 25 mg Multivitamins (Thera) 1 each PO DAILY [facility] Last Admin: 10/22/17 08:27 Dose: 1 each Omeprazole (Omeprazole) 20 mg PO ACBRK [facility] Last Admin: 10/23/17 06:21 Dose: 20 mg Sodium Chloride (Saline Flush) 10 ml FLUSH ASDIRECTED PRN PRN Reason: Keep Vein Open Last Admin: 10/22/17 20:50 Dose: 10 ml Zolpidem Tartrate (Ambien) 5 mg PO BEDTIME PRN PRN Reason: Sleep Last Admin: 10/22/17 21:43 Dose: 5 mg Discontinued Medications Sodium Chloride (Normal Saline) 1,000 mls @ 125 mls/hr IV ASDIRECTED [facility] Last Infusion: 10/22/17 13:55 Dose: Infused Potassium Chloride 20 meq/ (Premix) 100 mls @ 50 mls/hr IV Q2H [facility] Stop: 10/21/17 21:44 Last Admin: 10/22/17 03:15 Dose: Not Given Loperamide HCl (Imodium) 2 mg PO Q6H PRN PRN Reason: Diarrhea Last Admin: 10/23/17 06:37 Dose: 2 mg Non-Formulary Medication (Alendronate [Fosamax]) 1 tab PO WEEKLY [facility] Non-Formulary Medication (Ciclopirox [Ciclopirox]) 1 applic TOP ASDIRECTED [facility] Non-Formulary Medication (Fish Oil/[place]-3 Fatty Acids [Fish Oil 1,000 Mg]) 1 cap PO BID [facility] Potassium Chloride (Klor-Con 10) 40 meq PO ONETIME ONE Stop: 10/22/17 11:26 Last Admin: 10/22/17 13:56 Dose: 40 meq - Exam General: Reports: Alert, Oriented Neck: Reports: Supple Lungs: Reports: Clear to Auscultation, Normal Respiratory Effort Cardiovascular: Reports: Regular Rate, Regular Rhythm Extremities: No Pedal Edema Wound/Incisions: Reports: Other (Dressing with wet-to-dry, no erythema)
[2017-10-23] MEDS ORDERED: Ondansetron 4 MG Tab.DIS PO PRN (12:23)
[2017-10-23] MEDS: Calcium Carbonate/Vitamin D3 1250 MG-200 Unit Tab PO SCH (12:45)
[2017-10-23] MEDS: Chlorthalidone 25 MG Tab PO SCH (12:45)
[2017-10-23] MEDS: Aspirin 81 MG Tab.EC PO SCH (12:46)
[2017-10-23] MEDS: Metoprolol Tartrate 25 MG Tab PO SCH (12:46)
[2017-10-23] MEDS: Multivitamins,Therapeutic Tab PO SCH (13:06)
[2017-10-23] MEDS: amLODIPine 5 MG Tab PO SCH (13:06)
[2017-10-23 13:22] VITALS: BP 124/33
[2017-10-23] MEDS ORDERED: Loperamide 1 MG/5 ML Soln 5 ML UD Cup PO SCH (14:00)
[2017-10-23] MEDS ORDERED: Loperamide 2 MG Cap PO SCH (14:00)
== END 2017-10-23 14:50 | disposition swing bed (61) ==
LOC: EDSTATUS 16:32 → DL.MS 17:04
PROVIDERS: ADMIT Student in an Organized Health Care Education/Training Program; ATTEND Student in an Organized Health Care Education/Training Program
DX: E87.6 Hypokalemia (principal); E87.1 Hypo-osmolality and hyponatremia; E86.0 Dehydration; R63.0 Anorexia; D50.9 Iron deficiency anemia, unspecified; I10 Essential (primary) hypertension; E66.9 Obesity, unspecified; E78.5 Hyperlipidemia, unspecified; Z79.82 Long term (current) use of aspirin; Z79.899 Other long term (current) drug therapy; Z88.1 Allergy status to other antibiotic agents; Z88.5 Allergy status to narcotic agent; Z88.8 Allergy status to other drugs, medicaments and biological substances
CPT/HCPCS: 36415; 80048; 80076; 83735; 84100; 85025; 87493; 97161; 97166; A9270; J1644; J3480; J7030; J7050; J7500; 96361; 96365; 96366; 96372; 96376; G0378; G0379

== ENCOUNTER 2017-10-23 14:49 | Inpatient (IN) | payer OTHER, MEDICARE ==
[2017-10-23] MEDS ORDERED: Docusate Sodium 100 MG Cap PO PRN (17:14)
[2017-10-23] MEDS ORDERED: Sodium Chloride 0.9% 10 ML Syringe FLUSH PRN (17:17)
--- NOTE | 2017-10-23 17:23 | PCM.HP ---
H&P History of Present Illness - General Date of Service: 10/23/17 Admit Problem/Dx: Admission Diagnosis/Problem Admission Diagnosis/Problem Weakness Source of Information: Patient - History of Present Illness Initial Comments - Free Text/Narative: The patient is transferred to [facility] bed from acute care for further physical and occupational therapy. We will need wound care. - Related Data Allergies/Adverse Reactions: Allergies Allergy/AdvReac Type Severity Reaction Status Date / Time clarithromycin Allergy Hives Verified 10/21/17 17:25 codeine Allergy Stomach Verified 10/21/17 17:25 Ache promethazine HCl Allergy Hives Verified 10/21/17 17:25 [From Phenergan] raloxifene Allergy Hives Verified 10/21/17 17:25 Home Medications: Home Meds Calcium Carb & Citrate/Vit D3 [Citracal + D ER] 1 tab PO BID 02/05/14 [History] Multivitamin [Multi-Vitamin Daily] 1 tab PO DAILY 02/05/14 [History] Omeprazole [Prilosec] 20 mg PO DAILY 02/05/14 [History] Aspirin [Halfprin] 81 mg PO DAILY 08/26/15 [History] Chlorthalidone 12.5 mg PO DAILY 08/26/15 [History] Magnesium Oxide 200 mg PO BID 08/26/15 [History] amLODIPine [Norvasc] 5 mg PO DAILY 08/26/15 [History] Docusate Sodium [Colace] 100 mg PO BID PRN 05/07/16 [History] Ferrous Fumarate 324 mg PO BID 10/21/17 [History] Metoprolol Succinate [Toprol XL 50mg] 50 mg PO DAILY 10/21/17 [History] Potassium Chloride [Klor-Con 10] 10 meq PO DAILY 10/21/17 [History] Heparin Sodium 5,000 units SUBCUT Q12H vial 10/23/17 [Rx] Loperamide HCl [Imodium A-D] 2 mg PO BID PRN 10/23/17 [History] Metoprolol Tartrate [Lopressor] 25 mg PO DAILY tablet 10/23/17 [Rx] azaTHIOprine [Imuran] 50 mg PO BID tablet 10/23/17 [Rx] Past Medical History HEENT History: Reports: Impaired Vision, Other (See Below) Other HEENT History: 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 VENTRAL HERNIA. 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: Musculoskeletal History: Reports: Other (See Below) Other Musculoskeletal History: DEGENERATIVE JOINT DISEASE Neurological History: Reports: None Psychiatric History: Reports: Anxiety Endocrine/Metabolic History: Reports: Obesity/BMI 30+ Hematologic History: Reports: Anemia, Iron Deficiency Immunologic History: Reports: None Oncologic (Cancer) History: Reports: None Dermatologic History: Reports: Cellulitis Other Dermatologic History: recent ingrown toenail R) great to removed, now having drng and discomfort - Infectious Disease History Infectious Disease History: Reports: Chicken Pox Other Infectious Disease History: doesn't remember - Past Surgical History Head Surgeries/Procedures: Reports: None GI Surgical History: Reports: Appendectomy, Cholecystectomy, Colonoscopy, EGD, Hernia, Abdominal, Hernia Repair/Other Female Surgical History: Reports: Section, Hysterectomy, Salpingo- Oophorectomy Social & Family History - Family History Family Medical History: Noncontributory HEENT: Reports: None Cardiac: Reports: Hypertension Respiratory: Reports: None GI: Reports: None : Reports: None OBGYN: Reports: None Musculoskeletal: Reports: SLE Neurological: Reports: None Psychiatric: Reports: None Endocrine/Metabolic: Reports: None Hematologic: Reports: None Immunologic: Reports: None Dermatologic: Reports: None Oncologic: Reports: None - Tobacco Use Smoking Status *Q: Former Smoker Used Tobacco, but Quit: Yes Month/Year Tobacco Last Used: 2008 - Caffeine Use Caffeine Use: Reports: Coffee Other Caffeine Use: AVERAGE INTAKE 4 CUPS - Recreational Drug Use Recreational Drug Use: No H&P Review of Systems - Review of Systems: Review Of Systems: See Below General: Denies: Fever Pulmonary: Denies: Shortness of Breath Cardiovascular: Denies: Chest Pain Gastrointestinal: Reports: Diarrhea. Denies: Abdominal Pain Psychiatric: Denies: Confusion Exam - Exam Exam: See Below - Vital Signs Weight: 54.613 kg - Exam General: Alert, Oriented Neck: Supple Lungs: Clear to Auscultation, Normal Respiratory Effort Cardiovascular: Regular Rate, Regular Rhythm GI/Abdominal Exam: Normal Bowel Sounds, Soft, Non-Tender Extremities: No Pedal Edema Skin: Wound (Large abdominal wound with wet-to-dry dressing) Problem List Initiated/Reviewed/Updated: Yes Orders Last 24hrs: Active Orders 24 hr Category Date Time Status Patient Status [ADT] Routine ADT 10/23/17 17:17 Active Oxygen Therapy [RC] PRN Care 10/23/17 17:17 Active Peripheral IV Care [RC] . DIRECTED Care 10/23/17 17:19 Active Up With Assistance [RC] ASDIRECTED Care 10/23/17 17:17 Active VTE/DVT Education [RC] PER UNIT ROUTINE Care 10/23/17 17:17 Active Vital Signs [RC] QSHIFT Care 10/23/17 17:17 Active Wound Care [RC] BID Care 10/23/17 17:19 Active Regular Diet [DIET] Diet 10/23/17 Breakfast Active BASIC METABOLIC PANEL,BMP [CHEM] AM Lab 10/24/17 05:11 Ordered CBC WITH AUTO DIFF [HEME] AM Lab 10/24/17 05:11 Ordered Acetaminophen [Tylenol] Med 10/23/17 17:17 Ordered 650 mg PO Q4H PRN Aspirin [Halfprin] Med 10/24/17 09:00 Ordered 81 mg PO DAILY Calcium Carbonate/Vitamin D3 [Calcium Carbonate/Vitamin Med 10/23/17 18:00 Ordered D 1250 MG-200 Unit] 1 tab PO BIDMEALS Chlorthalidone Med 10/24/17 09:00 Ordered 12.5 mg PO DAILY Docusate Sodium [Colace] Med 10/23/17 17:14 Ordered 100 mg PO BID PRN Ferrous Fumarate [Ferrous Fumarate] Med 10/23/17 21:00 Ordered 324 mg PO BID Heparin Sodium Med 10/23/17 17:15 Ordered 5,000 units SUBCUT Q12H Loperamide HCl [Imodium A-D] Med 10/23/17 21:00 Ordered 2 mg PO TID Magnesium Oxide [Magnesium Oxide] Med 10/23/17 21:00 Ordered 200 mg PO BID Metoprolol Succinate [Toprol XL] Med 10/24/17 09:00 Ordered 50 mg PO DAILY Multivitamin [Multi-Vitamin Daily] Med 10/24/17 09:00 Ordered 1 tab PO DAILY Omeprazole Med 10/24/17 09:00 Ordered 20 mg PO DAILY Potassium Chloride [Klor-Con 10] Med 10/24/17 09:00 Ordered 20 meq PO DAILY Sodium Chloride 0.9% [Saline Flush] Med 10/23/17 17:17 Ordered 10 ml FLUSH ASDIRECTED PRN Zolpidem [Ambien] Med 10/23/17 17:17 Ordered 5 mg PO BEDTIME PRN amLODIPine [Norvasc] Med 10/24/17 09:00 Ordered 5 mg PO DAILY azaTHIOprine [Imuran] Med 10/23/17 21:00 Ordered 50 mg PO BID Antiembolic Hose [OM.PC] Per Unit Routine Oth 10/23/17 17:18 Ordered Peripheral IV Insertion Adult [OM.PC] Routine Oth 10/23/17 17:17 Ordered Saline Lock Insert [OM.PC] Routine Oth 10/23/17 17:17 Ordered Resuscitation Status Routine Resus Stat 10/23/17 17:17 Ordered Medication Orders Acetaminophen (Tylenol) 650 mg PO Q4H PRN PRN Reason: Pain (Mild 1-3)/fever Aspirin (Halfprin) 81 mg PO DAILY EMILY Azathioprine (Imuran) 50 mg PO BID EMILY Calcium Carbonate (Calcium Carbonate/Vitamin D 1250 Mg-200 Unit) 1 tab PO BIDMEALS EMILY Chlorthalidone (Chlorthalidone) 12.5 mg PO DAILY EMILY Docusate Sodium (Colace) 100 mg PO BID PRN PRN Reason: Constipation Heparin Sodium (Porcine) (Heparin Sodium) 5,000 units SUBCUT Q12H EMILY Metoprolol Succinate (Toprol Xl) 50 mg PO DAILY EMILY Non-Formulary Medication (Amlodipine [Norvasc]) 5 mg PO DAILY [facility] Non-Formulary Medication (Ferrous Fumarate [Ferrous Fumarate]) 324 mg PO BID EMILY Non-Formulary Medication (Loperamide Hcl [Imodium A-D]) 2 mg PO TID EMILY Non-Formulary Medication (Magnesium Oxide [Magnesium Oxide]) 200 mg PO BID EMILY Non-Formulary Medication (Multivitamin [Multi-Vitamin Daily]) 1 tab PO DAILY EMILY Omeprazole (Omeprazole) 20 mg PO DAILY EMILY Potassium Chloride (Klor-Con 10) 20 meq PO DAILY EMILY Sodium Chloride (Saline Flush) 10 ml FLUSH ASDIRECTED PRN PRN Reason: Keep Vein Open Zolpidem Tartrate (Ambien) 5 mg PO BEDTIME PRN PRN Reason: Sleep Assessment/Plan Comment:: Patient is 72 y/o F with complicated medical history including hypertension, hyperlipidemia, Ventral hernia, Sjogren syndrome, Chronic autoimmune hepatitis, deficiency anemia. She recently had abdominal surgery for abdominal abscess and Ventral at [facility] and was discharge on 10/16. Patient was referred fron internal medicine clinic for hospitalization fater she presented there for porr oral intake, generalized weakness since discharge. Labs in the clinic showed K;2.8, Na 133 alb 2.2hb 9.4wbc 4.9. She was sent for admission for rehydration and electrolyte replacement. The patient was transferred to swing bed for further physical, occupational therapy and wound care Hypokalemia -Patient presented with K 2.8 improved cont PO supplement Mild hyponatremia improved with adequate hydration stopped IVF Hypoalbuminemia -this is due to poor intake -should improve following improvement in eating Dehydration resolved with IVF Poor oral appetite -encourage oral intake -General diet -nutritional supplement Generalized weakness -PT/OT Chronic iron deficiency anemia -continue home medication HTN -cont. norvasc, metoprolol -[facility] -continue home meds General diet
[2017-10-23] MEDS: Heparin Sodium 5,000 Units/ML Vial SUBCUT SCH (17:57)
[2017-10-23] MEDS: Calcium Carbonate/Vitamin D3 1250 MG-200 Unit Tab PO SCH (17:57)
[2017-10-23] MEDS ORDERED: NS + KCl 20mEq/L 1,000 ML IV SCH (18:00)
[2017-10-23] MEDS: Ferrous Sulfate 325 MG Tab PO SCH (21:00)
[2017-10-23] MEDS: Loperamide 2 MG Cap PO SCH (21:00)
[2017-10-23] MEDS: Zolpidem 5 MG Tab PO PRN (23:47)
[2017-10-24] MEDS: Omeprazole 20 MG Cap.CR PO SCH (05:40)
[2017-10-24] MEDS: Heparin Sodium 5,000 Units/ML Vial SUBCUT SCH ×2 (05:51→18:01)
[2017-10-24 07:14] LABS: ANION GAP 9.5; CHLORIDE,CL 110 mmol/L (101-111); SODIUM,NA 136 mmol/L (135-145)
[2017-10-24] MEDS: LOPERAMIDE PO SCH ×3 (11:33→22:08)
[2017-10-24] MEDS: Metoprolol Succinate 50 MG Tab.ER PO SCH (12:17)
[2017-10-24] MEDS: amLODIPine 5 MG Tab PO SCH ×2 (12:21→12:33)
[2017-10-24] MEDS: Potassium Chloride 10 MEQ Tab.ER PO SCH ×2 (12:22→19:26)
[2017-10-24] MEDS: Potassium Chloride 10 MEQ Tab.ER PO ONE ×2 (12:23→19:26)
[2017-10-24] MEDS: Multivitamins,Therapeutic Tab PO SCH (12:25)
[2017-10-24] MEDS: Aspirin 81 MG Tab.EC PO SCH (12:27)
[2017-10-24] MEDS: Ferrous Sulfate 325 MG Tab PO SCH ×2 (12:27→22:07)
[2017-10-24] MEDS: Chlorthalidone 25 MG Tab PO SCH (12:28)
[2017-10-24] MEDS: Calcium Carbonate/Vitamin D3 1250 MG-200 Unit Tab PO SCH ×2 (12:28→18:04)
[2017-10-24] MEDS: Loperamide 2 MG Cap PO SCH (12:31)
[2017-10-24] MEDS: Ondansetron 4 MG Tab.DIS PO PRN (13:49)
[2017-10-24] MEDS: Acetaminophen 325 MG Tab PO PRN (19:48)
[2017-10-25] MEDS: Zolpidem 5 MG Tab PO PRN
[2017-10-25] MEDS: LORazepam 0.5 MG Tab PO PRN (02:29)
[2017-10-25] MEDS: Albuterol/Ipratropium 3.0-0.5 MG/3 ML Neb Soln NEB PRN (02:31)
[2017-10-25] MEDS: Acetaminophen 325 MG Tab PO PRN (06:18)
[2017-10-25] MEDS: Sodium Chloride 0.9% 1,000 ML IV SCH ×2 (06:22→21:26)
[2017-10-25] MEDS: Ondansetron 4 MG/2 ML SDV IV PRN ×2 (06:24→20:22)
[2017-10-25] MEDS: metroNIDAZOLE/Normal Saline 500 MG in Premix Bag 100 BAG IV SCH ×3 (06:26→22:30)
[2017-10-25] MEDS: Heparin Sodium 5,000 Units/ML Vial SUBCUT SCH ×2 (06:31→17:20)
[2017-10-25] MEDS: Omeprazole 20 MG Cap.CR PO SCH (06:32)
[2017-10-25 07:07] LABS: ANION GAP 13.5; CHLORIDE,CL 107 mmol/L (101-111); SODIUM,NA 135 mmol/L (135-145)
[2017-10-25] MEDS ORDERED: Potassium Chloride 10 MEQ Tab.ER PO ONE (10:28)
--- NOTE | 2017-10-25 10:55 | PCM.PN ---
- General Info Date of Service: 10/25/17 Admission Dx/Problem (Free Text): Admission Diagnosis/Problem Admission Diagnosis/Problem Weakness Subjective Update: Overnight the patient had fever, continued to have diarrhea. Associated with nausea. Stool is greenish, smelling. No significant abdominal pain associated with this. No chest pain, shortness of breath. - Review of Systems General: Reports: Fever, Weakness Pulmonary: Denies: Shortness of Breath Cardiovascular: Denies: Chest Pain Gastrointestinal: Reports: Diarrhea, Nausea, Vomiting. Denies: Abdominal Pain Neurological: Denies: Confusion - Patient Data Vitals - Most Recent: Last Vital Signs Temp 36.7 C 10/25/17 08:00 Pulse 118 H 10/25/17 08:00 Resp 26 H 10/25/17 08:00 BP 118/43 L 10/25/17 08:00 Pulse Ox 98 10/25/17 08:00 Weight - Most Recent: 54.613 kg I&O - Last 24 Hours: Intake & Output 10/24/17 10/25/17 10/25/17 22:59 06:59 14:59 Intake Total 150 250 98 Output Total 500 402 Balance -350 -152 98 Lab Results Last 24 Hours: Laboratory Results - last 24 hr 10/25/17 10/25/17 Range/Units 06:33 06:33 WBC 11.6 H (5.0-10.0) 10^3/uL RBC 3.79 L (4.2-5.4) 10^6/uL Hgb 10.4 L D (12.0-16.0) g/dL Hct 33.0 L (37.0-47.0) % MCV 87.1 (80-100) fL MCH 27.4 (27.0-34.0) pg MCHC 31.5 L (33.0-35.0) g/dL Plt Count 332 (150-450) 10^3/uL Sodium 135 (135-145) mmol/L Potassium 3.5 L (3.6-5.0) mmol/L Chloride 107 (101-111) mmol/L Carbon Dioxide 18.0 L (21.0-31.0) mmol/L Anion Gap 13.5 BUN 11 (7-18) mg/dL Creatinine 0.8 (0.6-1.3) mg/dL Est Cr Clr Drug Dosing 47.00 mL/min Estimated GFR (MDRD) > 60 Glucose 166 H (74-105) mg/dL Calcium 8.5 (8.4-10.2) mg/dl Med Orders - Current: Current Medications Acetaminophen (Tylenol) 650 mg PO Q4H PRN PRN Reason: Pain (Mild 1-3)/fever Last Admin: 10/25/17 06:18 Dose: 650 mg Albuterol/Ipratropium (Duoneb 3.0-0.5 Mg/3 Ml) 3 ml NEB Q6HRRT PRN PRN Reason: Congestion Last Admin: 10/25/17 02:31 Dose: 3 ml Amlodipine Besylate (Norvasc) 5 mg PO DAILY [facility] Last Admin: 10/24/17 12:33 Dose: Not Given Aspirin (Halfprin) 81 mg PO DAILY [facility] Last Admin: 10/24/17 12:27 Dose: Not Given Azathioprine (Imuran) 50 mg PO BID [facility] Last Admin: 10/24/17 22:07 Dose: 50 mg Calcium Carbonate (Calcium Carbonate/Vitamin D 1250 Mg-200 Unit) 1 tab PO BIDMEALS [facility] Last Admin: 10/24/17 18:04 Dose: Not Given Chlorthalidone (Chlorthalidone) 12.5 mg PO DAILY [facility] Last Admin: 10/24/17 12:28 Dose: Not Given Docusate Sodium (Colace) 100 mg PO BID PRN PRN Reason: Constipation Ferrous Sulfate (Ferrous Sulfate) 325 mg PO BID [facility] Last Admin: 10/24/17 22:07 Dose: 325 mg Heparin Sodium (Porcine) (Heparin Sodium) 5,000 units SUBCUT Q12H [facility] Last Admin: 10/25/17 06:31 Dose: Not Given Metronidazole 500 mg/ Premix 100 mls @ 100 mls/hr IV Q8H [facility] Last Admin: 10/25/17 06:26 Dose: 100 mls/hr Sodium Chloride (Normal Saline) 1,000 mls @ 75 mls/hr IV ASDIRECTED [facility] Last Admin: 10/25/17 06:22 Dose: 75 mls/hr Lorazepam (Ativan) 0.5 mg PO Q6H PRN PRN Reason: Anxiety Last Admin: 10/25/17 02:29 Dose: 0.5 mg Magnesium Oxide (Magnesium Oxide) 250 mg PO BID [facility] Last Admin: 10/24/17 22:07 Dose: 250 mg Metoprolol Succinate (Toprol Xl) 50 mg PO DAILY [facility] Last Admin: 10/24/17 12:17 Dose: 50 mg Multivitamins (Thera) 1 each PO DAILY [facility] Last Admin: 10/24/17 12:25 Dose: Not Given Omeprazole (Omeprazole) 20 mg PO ACBRK [facility] Last Admin: 10/25/17 06:32 Dose: Not Given Ondansetron HCl (Zofran Odt) 4 mg PO Q6H PRN PRN Reason: Nausea Last Admin: 10/24/17 13:49 Dose: 4 mg Ondansetron HCl (Zofran) 4 mg IV Q6HR PRN PRN Reason: Nausea Last Admin: 10/25/17 06:24 Dose: 4 mg Potassium Chloride (Klor-Con 10) 20 meq PO DAILY [facility] Last Admin: 10/24/17 19:26 Dose: Not Given Sodium Chloride (Saline Flush) 10 ml FLUSH ASDIRECTED PRN PRN Reason: Keep Vein Open Last Admin: 10/24/17 23:55 Dose: 10 ml Vancomycin HCl (Vancomycin 50 Mg/Ml Soln) 125 mg PO Q8HR [facility] Zolpidem Tartrate (Ambien) 5 mg PO BEDTIME PRN PRN Reason: Sleep Last Admin: 10/25/17 00:00 Dose: 5 mg Discontinued Medications Potassium Chloride/Sodium Chloride (Normal Saline With 20 Meq Kcl) 1,000 mls @ 50 mls/hr IV ASDIRECTED [facility] Last Admin: 10/23/17 18:29 Dose: 50 mls/hr Loperamide HCl (Imodium) 2 mg PO TID [facility] Last Admin: 10/24/17 12:31 Dose: Not Given Immodium Ad (1 Mg /7 (.5 Ml) *Pt Own Med*) 0 each PO TID [facility] Last Admin: 10/24/17 22:08 Dose: 2 each Potassium Chloride (Klor-Con 10) 20 meq PO ONETIME ONE Stop: 10/24/17 09:13 Last Admin: 10/24/17 19:26 Dose: Not Given Potassium Chloride (Klor-Con 10) 40 meq PO ONETIME ONE Stop: 10/25/17 10:29 Vancomycin HCl (Pharmacy To Dose - Vancomycin) 1 dose .XX ASDIRECTED [facility] - Exam General: Alert, Oriented Neck: Supple Lungs: Clear to Auscultation, Normal Respiratory Effort Cardiovascular: Regular Rate, Regular Rhythm GI/Abdominal Exam: Normal Bowel Sounds, Soft Extremities: No Pedal Edema Skin: Warm, Dry Wound/Incisions: Healing Well. No: Erythema Neurological: No New Focal Deficit Psy/Mental Status: Alert, Normal Affect, Normal Mood - Problem List & Annotations (1) Diarrhea SNOMED Code(s): 50525307 Code(s): R19.7 - DIARRHEA, UNSPECIFIED Status: Acute Current Visit: Yes (2) Weakness generalized SNOMED Code(s): 97742996 Code(s): R53.1 - WEAKNESS Status: Acute Current Visit: No - Problem List Review Problem List Initiated/Reviewed/Updated: Yes - My Orders Last 24 Hours: My Active Orders 10/24/17 13:23 Ondansetron [Zofran ODT] 4 mg PO Q6H PRN 10/25/17 02:09 Albuterol/Ipratropium [DuoNeb 3.0-0.5 MG/3 ML] 3 ml NEB Q6HRRT PRN 10/25/17 02:10 RT Aerosol Therapy [RC] ASDIRECTED 10/25/17 02:11 LORazepam [Ativan] 0.5 mg PO Q6H PRN 10/25/17 06:14 Ondansetron [Zofran] 4 mg IV Q6HR PRN 10/25/17 06:15 Sodium Chloride 0.9% [Normal Saline] 1,000 ml IV ASDIRECTED 10/25/17 06:30 metroNIDAZOLE/Normal Saline [Flagyl 500 MG in NS 100 ML] 500 mg Premix Bag 100 bag IV Q8H 10/25/17 10:26 CULTURE BLOOD [BC] Stat CULTURE BLOOD [BC] Stat UA W/MICROSCOPIC [URIN] Routine Blood Culture x2 Reflex Set [OM.PC] Stat 10/25/17 14:00 Vancomycin [Vancomycin 50 MG/ML Soln] 125 mg PO Q8HR 10/26/17 05:15 BASIC METABOLIC PANEL,BMP [CHEM] AM CBC WITH AUTO DIFF [HEME] AM - Plan Plan:: Patient is 72 y/o F with complicated medical history including hypertension, hyperlipidemia, Ventral hernia, Sjogren syndrome, Chronic autoimmune hepatitis, deficiency anemia. She recently had abdominal surgery for abdominal abscess and Ventral at [facility] and was discharge on 10/16. Patient was referred fron internal medicine clinic for hospitalization fater she presented there for porr oral intake, generalized weakness since discharge. Labs in the clinic showed K;2.8, Na 133 alb 2.2hb 9.4wbc 4.9. She was sent for admission for rehydration and electrolyte replacement. The patient was transferred to [facility] bed for further physical, occupational therapy and wound care Overnight the patient developed fever, tachycardia, continue diarrhea. Appear to have sepsis Possible C. difficile colitis C. difficile stool test is pending Will obtain blood culture, urine analysis and culture empirically start on vancomycin by mouth and IV Flagyl Stop Imodium Try to use Metamucil for diarrhea We'll give IV hydration Follow electrolytes and replace them as needed Hypokalemia -Patient presented with K 2.8 improved cont PO supplement Hypoalbuminemia -this is due to poor intake -should improve following improvement in eating Poor oral appetite -encourage oral intake -General diet -nutritional supplement Generalized weakness -PT/OT Chronic iron deficiency anemia -continue home medication HTN -cont. norvasc, metoprolol -monitor BP mary jane [place] -continue home meds General diet
[2017-10-25] MEDS: Ondansetron 4 MG Tab.DIS PO PRN (11:30)
[2017-10-25] MEDS: oxyCODONE 5 MG Tab PO PRN (11:30)
[2017-10-25] MEDS: Ferrous Sulfate 325 MG Tab PO SCH ×2 (11:39→22:09)
[2017-10-25] MEDS: Chlorthalidone 25 MG Tab PO SCH (11:39)
[2017-10-25] MEDS: Calcium Carbonate/Vitamin D3 1250 MG-200 Unit Tab PO SCH ×2 (11:39→17:22)
[2017-10-25] MEDS: Aspirin 81 MG Tab.EC PO SCH (11:39)
[2017-10-25] MEDS: Multivitamins,Therapeutic Tab PO SCH (11:40)
[2017-10-25] MEDS: Metoprolol Succinate 50 MG Tab.ER PO SCH (11:40)
[2017-10-25] MEDS: amLODIPine 5 MG Tab PO SCH (11:40)
[2017-10-25] MEDS: Vancomycin 50 MG/ML Oral Solution Bottle Kit PO SCH ×2 (15:03→21:23)
[2017-10-25] MEDS: Psyllium Husk Powder Sugar Free 5.85 GM Packet PO SCH ×2 (15:12→22:09)
[2017-10-25] MEDS: Potassium Chloride 10 MEQ Tab.ER PO SCH (19:17)
[2017-10-26] MEDS: LORazepam 0.5 MG Tab PO PRN
[2017-10-26] MEDS: Ondansetron 4 MG/2 ML SDV IV PRN (02:52)
[2017-10-26] MEDS: Heparin Sodium 5,000 Units/ML Vial SUBCUT SCH ×2 (04:31→17:28)
[2017-10-26] MEDS: Vancomycin 50 MG/ML Oral Solution Bottle Kit PO SCH ×3 (06:04→22:20)
[2017-10-26] MEDS: Omeprazole 20 MG Cap.CR PO SCH (06:06)
[2017-10-26] MEDS: metroNIDAZOLE/Normal Saline 500 MG in Premix Bag 100 BAG IV SCH (06:06)
[2017-10-26 07:12] LABS: ANION GAP 10.4
[2017-10-26] MEDS: Metoprolol Succinate 50 MG Tab.ER PO SCH (09:52)
[2017-10-26] MEDS: Chlorthalidone 25 MG Tab PO SCH (09:52)
[2017-10-26] MEDS: amLODIPine 5 MG Tab PO SCH (09:52)
[2017-10-26] MEDS: Ondansetron 4 MG Tab.DIS PO PRN (09:52)
[2017-10-26] MEDS: Aspirin 81 MG Tab.EC PO SCH (09:53)
--- NOTE | 2017-10-26 10:51 | PCM.PN ---
- General Info Date of Service: 10/26/17 Admission Dx/Problem (Free Text): Admission Diagnosis/Problem Admission Diagnosis/Problem Weakness, diarrhea Subjective Update: No more fever, but continued to have diarrhea. Associated with nausea. Stool is greenish, smelling. On and off moderate abdominal pain associated with this. No chest pain, shortness of breath. Eating very little. Family requested transfer to [facility]. We have arranged transfer had an accepting physician and arranged ambulance. Later family decided not to goal. Functional Status: Reports: Pain Controlled, Tolerating Diet (Very little intake ) - Review of Systems General: Reports: Weakness. Denies: Fever Pulmonary: Denies: Shortness of Breath Cardiovascular: Denies: Chest Pain Gastrointestinal: Reports: Abdominal Pain (On and off, moderate) Genitourinary: Denies: Dysuria Neurological: Denies: Confusion (Not sleeping at night, sleeping during the day) - Patient Data Vitals - Most Recent: Last Vital Signs Temp 36.7 C 10/26/17 08:04 Pulse 128 H 10/26/17 09:52 Resp 20 10/26/17 08:04 BP 125/68 10/26/17 09:52 Pulse Ox 93 L 10/26/17 08:04 Weight - Most Recent: 54.613 kg I&O - Last 24 Hours: Intake & Output 10/25/17 10/26/17 10/26/17 22:59 06:59 14:59 Intake Total 897 1848 Output Total 25 Balance 897 1823 Lab Results Last 24 Hours: Laboratory Results - last 24 hr 10/25/17 10/26/17 10/26/17 Range/Units 21:00 06:40 06:40 WBC 16.1 H (5.0-10.0) 10^3/uL RBC 3.48 L (4.2-5.4) 10^6/uL Hgb 9.5 L (12.0-16.0) g/dL Hct 29.9 L (37.0-47.0) % MCV 85.9 (80-100) fL MCH 27.3 (27.0-34.0) pg MCHC 31.8 L (33.0-35.0) g/dL Plt Count 307 (150-450) 10^3/uL Neut % (Auto) 85.7 H (42.2-75.2) % Lymph % (Auto) 7.7 L (20.5-50.1) % [place] % (Auto) 6.3 (2-8) % Eos % (Auto) 0.2 L (1.0-3.0) % Baso % (Auto) 0.1 (0.0-1.0) % Sodium 133 L (135-145) mmol/L Potassium 3.4 L (3.6-5.0) mmol/L Chloride 108 (101-111) mmol/L Carbon Dioxide 18.0 L (21.0-31.0) mmol/L Anion Gap 10.4 BUN 18 (7-18) mg/dL Creatinine 1.0 (0.6-1.3) mg/dL Est Cr Clr Drug Dosing 37.60 mL/min Estimated GFR (MDRD) 55 Glucose 115 H (74-105) mg/dL Calcium 7.3 L (8.4-10.2) mg/dl Urine Color Dark yellow (YELLOW) Urine Appearance Slightly cloudy (CLEAR) Urine pH 5.5 (5.0-9.0) Ur Specific [place] 1.015 (1.005-1.030) Urine Protein 30 H (NEGATIVE) Urine Glucose (UA) 100 H (NEGATIVE) Urine Ketones Trace H (NEGATIVE) Urine Occult Blood Negative (NEGATIVE) Urine Nitrite Negative (NEGATIVE) Urine Bilirubin Moderate H (NEGATIVE) Urine Urobilinogen 0.2 (0.2-1.0) mg/dL Ur Leukocyte Esterase Negative (NEGATIVE) Urine RBC 0-5 /HPF Urine WBC 0-5 (0-5/HPF) /HPF Ur Epithelial Cells Few /HPF Urine Bacteria Many H (0-FEW/HPF) /HPF Hyaline Casts Moderate H /LPF Med Orders - Current: Current Medications Acetaminophen (Tylenol) 650 mg PO Q4H PRN PRN Reason: Pain (Mild 1-3)/fever Last Admin: 10/25/17 06:18 Dose: 650 mg Albuterol/Ipratropium (Duoneb 3.0-0.5 Mg/3 Ml) 3 ml NEB Q6HRRT PRN PRN Reason: Congestion Last Admin: 10/25/17 02:31 Dose: 3 ml Amlodipine Besylate (Norvasc) 5 mg PO DAILY [facility] Last Admin: 10/26/17 09:52 Dose: 5 mg Aspirin (Halfprin) 81 mg PO DAILY [facility] Last Admin: 10/26/17 09:53 Dose: 81 mg Azathioprine (Imuran) 50 mg PO BID [facility] Last Admin: 10/26/17 09:53 Dose: 50 mg Calcium Carbonate (Calcium Carbonate/Vitamin D 1250 Mg-200 Unit) 1 tab PO BIDMEALS [facility] Last Admin: 10/25/17 17:22 Dose: Not Given Ferrous Sulfate (Ferrous Sulfate) 325 mg PO BID [facility] Last Admin: 10/25/17 22:09 Dose: Not Given Heparin Sodium (Porcine) (Heparin Sodium) 5,000 units SUBCUT Q12H [facility] Last Admin: 10/26/17 04:31 Dose: Not Given Metronidazole 500 mg/ Premix 100 mls @ 100 mls/hr IV Q8H [facility] Last Admin: 10/26/17 06:06 Dose: 100 mls/hr Sodium Chloride (Normal Saline) 1,000 mls @ 75 mls/hr IV ASDIRECTED [facility] Last Admin: 10/25/17 21:26 Dose: 75 mls/hr Ceftriaxone Sodium 1,000 mg/ (Sodium Chloride) 100 mls @ 200 mls/hr IV Q24H [facility] Lorazepam (Ativan) 0.5 mg PO Q6H PRN PRN Reason: Anxiety Last Admin: 10/26/17 00:00 Dose: 0.5 mg Magnesium Oxide (Magnesium Oxide) 250 mg PO BID [facility] Last Admin: 10/25/17 22:09 Dose: Not Given Metoprolol Succinate (Toprol Xl) 50 mg PO DAILY [facility] Last Admin: 10/26/17 09:52 Dose: 50 mg Multivitamins (Thera) 1 each PO DAILY [facility] Last Admin: 10/25/17 11:40 Dose: Not Given Omeprazole (Omeprazole) 20 mg PO ACBRK [facility] Last Admin: 10/26/17 06:06 Dose: Not Given Ondansetron HCl (Zofran Odt) 4 mg PO Q6H PRN PRN Reason: Nausea Last Admin: 10/26/17 09:52 Dose: 4 mg Ondansetron HCl (Zofran) 4 mg IV Q6HR PRN PRN Reason: Nausea Last Admin: 10/26/17 02:52 Dose: 4 mg Oxycodone HCl (Oxycodone) 5 mg PO Q4H PRN PRN Reason: Pain Last Admin: 10/25/17 11:30 Dose: 5 mg Potassium Chloride (Klor-Con 10) 20 meq PO DAILY [facility] Last Admin: 10/25/17 19:17 Dose: Not Given Psyllium Husk (Metamucil Sugar Free) 1 pkt PO TID [facility] Sodium Chloride (Saline Flush) 10 ml FLUSH ASDIRECTED PRN PRN Reason: Keep Vein Open Last Admin: 10/24/17 23:55 Dose: 10 ml Vancomycin HCl (Vancomycin 50 Mg/Ml Soln) 125 mg PO Q8HR [facility] Last Admin: 10/26/17 06:04 Dose: 2.5 ml Zolpidem Tartrate (Ambien) 5 mg PO BEDTIME PRN PRN Reason: Sleep Last Admin: 10/26/17 00:00 Dose: 5 mg Discontinued Medications Chlorthalidone (Chlorthalidone) 12.5 mg PO DAILY [facility] Last Admin: 10/26/17 09:52 Dose: 12.5 mg Docusate Sodium (Colace) 100 mg PO BID PRN PRN Reason: Constipation Potassium Chloride/Sodium Chloride (Normal Saline With 20 Meq Kcl) 1,000 mls @ 50 mls/hr IV ASDIRECTED [facility] Last Admin: 10/23/17 18:29 Dose: 50 mls/hr Loperamide HCl (Imodium) 2 mg PO TID [facility] Last Admin: 10/24/17 12:31 Dose: Not Given Immodium Ad (1 Mg /7 (.5 Ml) *Pt Own Med*) 0 each PO TID [facility] Last Admin: 10/24/17 22:08 Dose: 2 each Potassium Chloride (Klor-Con 10) 20 meq PO ONETIME ONE Stop: 10/24/17 09:13 Last Admin: 10/24/17 19:26 Dose: Not Given Potassium Chloride (Klor-Con 10) 40 meq PO ONETIME ONE Stop: 10/25/17 10:29 Last Admin: 10/25/17 19:17 Dose: Not Given Psyllium Husk (Metamucil Sugar Free) 1 pkt PO BID [facility] Last Admin: 10/25/17 22:09 Dose: Not Given Vancomycin HCl (Pharmacy To Dose - Vancomycin) 1 dose .XX ASDIRECTED [facility] - Exam General: Alert, Oriented Neck: Supple Lungs: Clear to Auscultation, Normal Respiratory Effort Cardiovascular: Regular Rate, Regular Rhythm GI/Abdominal Exam: Normal Bowel Sounds, Soft Extremities: No Pedal Edema Wound/Incisions: Healing Well Psy/Mental Status: Alert, Normal Affect, Normal Mood - Problem List & Annotations (1) Diarrhea SNOMED Code(s): 84308299 Code(s): R19.7 - DIARRHEA, UNSPECIFIED Status: Acute Current Visit: Yes (2) Weakness generalized SNOMED Code(s): 18880791 Code(s): R53.1 - WEAKNESS Status: Acute Current Visit: No - Problem List Review Problem List Initiated/Reviewed/Updated: Yes - My Orders Last 24 Hours: My Active Orders 10/25/17 10:26 Blood Culture x2 Reflex Set [OM.PC] Stat 10/25/17 11:12 oxyCODONE 5 mg PO Q4H PRN 10/25/17 11:55 CULTURE BLOOD [BC] Stat 10/25/17 14:00 Vancomycin [Vancomycin 50 MG/ML Soln] 125 mg PO Q8HR 10/25/17 21:00 UA W/MICROSCOPIC [URIN] Routine 10/26/17 10:30 Chest 1V Frontal [CR] Routine 10/26/17 10:45 cefTRIAXone [Rocephin] 1,000 mg Sodium Chloride 0.9% [Normal Saline] 100 ml IV Q24H 10/26/17 14:00 Psyllium Husk/Aspartame [Metamucil Sugar Free] 1 pkt PO TID 10/27/17 05:11 MAGNESIUM [CHEM] AM PHOSPHORUS [CHEM] AM 10/27/17 05:15 BASIC METABOLIC PANEL,BMP [CHEM] AM CBC WITH AUTO DIFF [HEME] AM - Plan Plan:: Patient is 72 y/o F with complicated medical history including hypertension, hyperlipidemia, Ventral hernia, Sjogren syndrome, Chronic autoimmune hepatitis, deficiency anemia. She recently had abdominal surgery for abdominal abscess and Ventral at [facility] and was discharge on 10/16. Patient was referred fron internal medicine clinic for hospitalization fater she presented there for porr oral intake, generalized weakness since discharge. Labs in the clinic showed K;2.8, Na 133 alb 2.2hb 9.4wbc 4.9. She was sent for admission for rehydration and electrolyte replacement. The patient was transferred to [facility] bed for further physical, occupational therapy and wound care Overnight the patient developed fever, leukocytosis, tachycardia, continued diarrhea. Appear to have sepsis Possible C. difficile colitis C. difficile stool test is pending blood culture: pending urine analysis: appears contaminant urine culture: pending empirically started on vancomycin by mouth and IV Flagyl Stop Imodium Try to use Metamucil for diarrhea We'll continue to give IV hydration Follow electrolytes and replace them as needed cough noted will get cxr add rocephin for klebsiella from abd. wound and possible resp infection Hypokalemia -Patient presented with K 2.8 improved cont PO supplement Hypoalbuminemia -this is due to poor intake -should improve following improvement in eating Poor oral appetite -encourage oral intake -General diet -nutritional supplement Generalized weakness -PT/OT Chronic iron deficiency anemia -continue home medication HTN -cont. norvasc, metoprolol - stop hctz -monitor BP mary jane ALC[place]ARA -continue home meds General diet
[2017-10-26] MEDS: Calcium Carbonate/Vitamin D3 1250 MG-200 Unit Tab PO SCH ×3 (11:49→17:53)
[2017-10-26] MEDS: Psyllium Husk Powder Sugar Free 5.85 GM Packet PO SCH ×4 (11:50→22:11)
[2017-10-26] MEDS ORDERED: cefTRIAXone 1 GM Vial IV SCH (12:00)
[2017-10-26] MEDS: Potassium Chloride 10 MEQ Tab.ER PO SCH (12:13)
[2017-10-26] MEDS: Multivitamins,Therapeutic Tab PO SCH (12:13)
[2017-10-26] MEDS: Ferrous Sulfate 325 MG Tab PO SCH ×3 (12:14→22:11)
--- NOTE | 2017-10-26 14:02 | CR ---
Clinical history: 72-year-old female with fever and leukocytosis. Interpretation: Abnormal. *Asymmetric patchy new pneumonic like consolidation (lobar infiltrate/atelectasis) left lower lobe be hind the heart when compared to 21 July 2017 exam. Mild bronchitis. Normal cardiac silhouette without alveolar edema or dependent effusion. No lung mass, hilar lymphadenopathy or other focal lobar consolidation. CONCLUSION: New left lower lobe consolidation.
[2017-10-26] MEDS: Sodium Chloride 0.9% 1,000 ML IV SCH (14:14)
[2017-10-26] MEDS: metroNIDAZOLE/Normal Saline 500 MG in Premix Bag 1 BAG IV SCH ×2 (14:16→22:19)
[2017-10-26] MEDS: Zolpidem 5 MG Tab PO PRN ×2 (23:49)
[2017-10-27] MEDS: Albuterol/Ipratropium 3.0-0.5 MG/3 ML Neb Soln NEB PRN (04:27)
[2017-10-27] MEDS: oxyCODONE 5 MG Tab PO PRN (04:39)
[2017-10-27] MEDS: Heparin Sodium 5,000 Units/ML Vial SUBCUT SCH (04:42)
[2017-10-27] MEDS: Sodium Chloride 0.9% 1,000 ML IV SCH (05:00)
[2017-10-27] MEDS: metroNIDAZOLE/Normal Saline 500 MG in Premix Bag 1 BAG IV SCH (05:43)
[2017-10-27] MEDS: Omeprazole 20 MG Cap.CR PO SCH (05:49)
[2017-10-27] MEDS: Vancomycin 50 MG/ML Oral Solution Bottle Kit PO SCH (05:49)
[2017-10-27 06:59] LABS: ANION GAP 15.8
[2017-10-27] MEDS: Calcium Carbonate/Vitamin D3 1250 MG-200 Unit Tab PO SCH (10:03)
[2017-10-27] MEDS ORDERED: Albumin 25% 12.5 GM/50 ML BAG IV ONE (10:04)
[2017-10-27] MEDS: Ferrous Sulfate 325 MG Tab PO SCH (10:05)
[2017-10-27] MEDS: Aspirin 81 MG Tab.EC PO SCH (10:05)
[2017-10-27] MEDS: Multivitamins,Therapeutic Tab PO SCH (10:06)
[2017-10-27] MEDS: Potassium Chloride 10 MEQ Tab.ER PO SCH (10:06)
[2017-10-27] MEDS: Psyllium Husk Powder Sugar Free 5.85 GM Packet PO SCH (10:06)
[2017-10-27] MEDS: Metoprolol Succinate 50 MG Tab.ER PO SCH (10:11)
[2017-10-27] MEDS: amLODIPine 5 MG Tab PO SCH (10:12)
[2017-10-27] MEDS ORDERED: Sodium Chloride 0.9% 1,000 ML IV SCH (10:15)
[2017-10-27] MEDS: LORazepam 0.5 MG Tab PO PRN (10:20)
[2017-10-27 10:50] VITALS: BP 103/40
--- NOTE | 2017-10-27 11:18 | PCM.DCSUM1 ---
Discharge Summary - Hospital Course Free Text/Narrative:: Patient is 72 y/o F with complicated medical history including hypertension, hyperlipidemia, Ventral hernia, Sjogren syndrome, Chronic autoimmune hepatitis, deficiency anemia. She recently had abdominal surgery for abdominal abscess and Ventral hernia at [facility] and was discharge on 10/16. The [facility] course was complicated with acute renal failure, respiratory failure requiring intubation, pneumonia. She was in the hospital for about 5 weeks. She was discharged from [facility] with continued diarrhea. 3 days after discharge she presented to her primary care physician. Patient was referred from internal medicine clinic for hospitalization for poor oral intake, generalized weakness. Labs in the clinic showed K;2.8, Na 133 alb 2.2hb 9.4wbc 4.9. She was admitted for rehydration and electrolyte replacement. Was treated with IV fluids, IV potassium supplement. The patient developed fever, leukocytosis, tachycardia, continued diarrhea. Appear to have sepsis stool tested positive for C. difficile colitis blood culture: pending - neg for now urine analysis: appears contaminated urine culture: pending wound cx: klebsiella CXR: left base infiltrate started on vancomycin by mouth and IV Flagyl on 10/25 Stopped Imodium added rocephin for klebsiella from abd. wound and possible resp infection on Try to use Metamucil for diarrhea NAYELY, hyponatremia creatinine jumped from 0.8 -1.0 - 1.7 likely due to sepsis, dehydration from diarrhea, lower BPs will give a dose of albumin now NS bolus We'll continue to give IV hydration Follow electrolytes and replace them as needed Hypoalbuminemia, malnutrition -this is due to poor intake, diarrhea -control infection, control diarrhea - consider TPN or Tubefeeding Generalized weakness -PT/OT Chronic iron deficiency anemia -continue home medication HTN -stop norvasc, stop hctz -monitor BP closley with sepsis We will transfer the patient to higher level of care. Diagnosis: Stroke: No - Discharge Data Discharge Date: 10/27/17 Discharge Disposition: Home, Self-Care 01 Condition: Good - Discharge Diagnosis/Problem(s) (1) Diarrhea SNOMED Code(s): 85166497 ICD Code: R19.7 - DIARRHEA, UNSPECIFIED Status: Acute Current Visit: Yes (2) Weakness generalized SNOMED Code(s): 89713361 ICD Code: R53.1 - WEAKNESS Status: Acute Current Visit: No - Patient Summary/Data Consults: Consultations 10/26/17 13:35 OT Evaluation and Treatment [CONS] Routine PT Evaluation and Treatment [CONS] Routine - Patient Instructions Diet: Usual Diet as Tolerated Activity: As Tolerated - Discharge Plan *PRESCRIPTION DRUG MONITORING PROGRAM REVIEWED*: Not Applicable *COPY OF PRESCRIPTION DRUG MONITORING REPORT IN PATIENT GHASSAN: Not Applicable Home Medications: Home Meds Multivitamin [Multi-Vitamin Daily] 1 tab PO DAILY 02/05/14 [History] Omeprazole [Prilosec] 20 mg PO DAILY 02/05/14 [History] Aspirin [Halfprin] 81 mg PO DAILY 08/26/15 [History] Magnesium Oxide 200 mg PO BID 08/26/15 [History] Ferrous Fumarate 324 mg PO BID 10/21/17 [History] Metoprolol Succinate [Toprol XL 50mg] 50 mg PO DAILY 10/21/17 [History] Heparin Sodium 5,000 units SUBCUT Q12H vial 10/23/17 [Rx] Acetaminophen [Tylenol] 650 mg PO Q4H PRN tablet 10/27/17 [Rx] Albuterol/Ipratropium [DuoNeb 3.0-0.5 MG/3 ML] 3 ml NEB Q6HRRT PRN neb [Rx] Calcium Carbonate/Vitamin D3 [Calcium Carbonate/Vitamin D 1250 MG-200 Unit] 1 tab PO BIDMEALS tablet 10/27/17 [Rx] Ondansetron [Zofran ODT] 4 mg PO Q6H PRN tab.dis 10/27/17 [Rx] Potassium Chloride [Klor-Con 10] 20 meq PO DAILY #0 tab.er 10/27/17 [Rx] Psyllium Husk/Aspartame [Metamucil Sugar Free] 1 pkt PO TID packet 10/27/17 [Rx ] Sodium Chloride 0.9% [Normal Saline] 125 ml IV ASDIRECTED bag 10/27/17 [Rx] Vancomycin [Vancomycin 50 MG/ML Soln] 125 mg PO Q8HR bottle 10/27/17 [Rx] cefTRIAXone [Rocephin] 1 gm IV Q24H vial 10/27/17 [Rx] metroNIDAZOLE/Normal Saline [Flagyl 500 MG in NS 100 ML] 500 mg IV Q8H bag [Rx] oxyCODONE 5 mg PO Q4H PRN tablet 10/27/17 [Rx] - Discharge Summary/Plan Comment DC Time >30 min.: Yes (transfer arrangementsto [facility], ambulance) - General Info Date of Service: 10/27/17 Subjective Update: Diarrhea is somewhat better, continues to be weak. Lower blood pressures noted. Tachycardia noted. On and off moderate abdominal pain associated with this. No chest pain, There is shortness of breath with activity Eating very little. Functional Status: Denies: Tolerating Diet (Has nausea) - Review of Systems General: Reports: Weakness. Denies: Fever Pulmonary: Reports: Shortness of Breath Cardiovascular: Denies: Chest Pain (With activity) Gastrointestinal: Reports: Abdominal Pain Genitourinary: Denies: Dysuria - Patient Data Vitals - Most Recent: Last Vital Signs Temp 36.0 C 10/27/17 10:47 Pulse 104 H 10/27/17 10:47 Resp 28 H 10/27/17 10:47 BP 103/40 L 10/27/17 10:47 Pulse Ox 88 L 10/27/17 10:47 Weight - Most Recent: 54.613 kg I&O - Last 24 hours: Intake & Output 10/26/17 10/27/17 10/27/17 22:59 06:59 14:59 Intake Total 797 1297 Output Total 25 Balance 797 1272 Lab Results - Last 24 hrs: Laboratory Results - last 24 hr 10/27/17 10/27/17 Range/Units 06:13 06:13 WBC 29.8 H* (5.0-10.0) 10^3/uL RBC 4.33 (4.2-5.4) 10^6/uL Hgb 11.9 L D (12.0-16.0) g/dL Hct 36.8 L (37.0-47.0) % MCV 85.0 (80-100) fL MCH 27.5 (27.0-34.0) pg MCHC 32.3 L (33.0-35.0) g/dL Plt Count 445 D (150-450) 10^3/uL Neut % (Auto) 90.8 H (42.2-75.2) % Lymph % (Auto) 5.4 L (20.5-50.1) % [place] % (Auto) 3.8 (2-8) % Eos % (Auto) 0.0 L (1.0-3.0) % Baso % (Auto) 0.0 (0.0-1.0) % Add Manual Diff Yes Neutrophils % (Manual) 74 (42-75) % Band Neutrophils % 14 % Lymphocytes % (Manual) 8 L (20-50) % Monocytes % (Manual) 4 (2-8) % Sodium 129 L (135-145) mmol/L Potassium 3.8 (3.6-5.0) mmol/L Chloride 105 (101-111) mmol/L Carbon Dioxide 12.0 L (21.0-31.0) mmol/L Anion Gap 15.8 BUN 25 H (7-18) mg/dL Creatinine 1.7 H (0.6-1.3) mg/dL Est Cr Clr Drug Dosing 22.12 mL/min Estimated GFR (MDRD) 30 Glucose 141 H (74-105) mg/dL Calcium 7.2 L (8.4-10.2) mg/dl Phosphorus 6.4 H (2.5-4.6) mg/dL Magnesium 1.9 (1.8-2.5) mg/dL JOSE A Results - Last 24 hrs: Microbiology 10/25/17 06:23 Aerobic Blood Culture - Preliminary Blood - Venous NO GROWTH AFTER 2 DAYS Anaerobic Blood Culture - Preliminary NO GROWTH AFTER 2 DAYS 10/25/17 11:55 Aerobic Blood Culture - Preliminary Blood - Venous - Lab Draw NO GROWTH AFTER 1 DAY Anaerobic Blood Culture - Preliminary NO GROWTH AFTER 1 DAY Med Orders - Current: Current Medications Acetaminophen (Tylenol) 650 mg PO Q4H PRN PRN Reason: Pain (Mild 1-3)/fever Last Admin: 10/25/17 06:18 Dose: 650 mg Albuterol/Ipratropium (Duoneb 3.0-0.5 Mg/3 Ml) 3 ml NEB Q6HRRT PRN PRN Reason: Congestion Last Admin: 10/27/17 04:27 Dose: 3 ml Aspirin (Halfprin) 81 mg PO DAILY [facility] Last Admin: 10/27/17 10:05 Dose: Not Given Calcium Carbonate (Calcium Carbonate/Vitamin D 1250 Mg-200 Unit) 1 tab PO BIDMEALS [facility] Last Admin: 10/27/17 10:03 Dose: Not Given Ceftriaxone Sodium (Rocephin) 1 gm IV Q24H [facility] Last Admin: 10/26/17 12:13 Dose: 1 gm Ferrous Sulfate (Ferrous Sulfate) 325 mg PO BID [facility] Last Admin: 10/27/17 10:05 Dose: Not Given Heparin Sodium (Porcine) (Heparin Sodium) 5,000 units SUBCUT Q12H [facility] Last Admin: 10/27/17 04:42 Dose: Not Given Sodium Chloride (Normal Saline) 1,000 mls @ 75 mls/hr IV ASDIRECTED [facility] Last Admin: 10/27/17 05:00 Dose: 75 mls/hr Metronidazole 500 mg/ Premix 100 mls @ 100 mls/hr IV Q8H [facility] Last Admin: 10/27/17 05:43 Dose: 100 mls/hr Sodium Chloride (Normal Saline) 1,000 mls @ 500 mls/hr IV ASDIRECTED [facility] Stop: 10/27/17 11:16 Lorazepam (Ativan) 0.5 mg PO Q6H PRN PRN Reason: Anxiety Last Admin: 10/27/17 10:20 Dose: 0.5 mg Magnesium Oxide (Magnesium Oxide) 250 mg PO BID [facility] Last Admin: 10/27/17 10:06 Dose: Not Given Metoprolol Succinate (Toprol Xl) 50 mg PO DAILY [facility] Last Admin: 10/27/17 10:11 Dose: Not Given Multivitamins (Thera) 1 each PO DAILY [facility] Last Admin: 10/27/17 10:06 Dose: Not Given Omeprazole (Omeprazole) 20 mg PO ACBRK [facility] Last Admin: 10/27/17 05:49 Dose: 20 mg Ondansetron HCl (Zofran Odt) 4 mg PO Q6H PRN PRN Reason: Nausea Last Admin: 10/26/17 09:52 Dose: 4 mg Ondansetron HCl (Zofran) 4 mg IV Q6HR PRN PRN Reason: Nausea Last Admin: 10/26/17 02:52 Dose: 4 mg Oxycodone HCl (Oxycodone) 5 mg PO Q4H PRN PRN Reason: Pain Last Admin: 10/27/17 04:39 Dose: 5 mg Potassium Chloride (Klor-Con 10) 20 meq PO DAILY [facility] Last Admin: 10/27/17 10:06 Dose: Not Given Psyllium Husk (Metamucil Sugar Free) 1 pkt PO TID [facility] Last Admin: 10/27/17 10:06 Dose: Not Given Sodium Chloride (Saline Flush) 10 ml FLUSH ASDIRECTED PRN PRN Reason: Keep Vein Open Last Admin: 10/24/17 23:55 Dose: 10 ml Vancomycin HCl (Vancomycin 50 Mg/Ml Soln) 125 mg PO Q8HR [facility] Last Admin: 10/27/17 05:49 Dose: 2.5 ml Zolpidem Tartrate (Ambien) 5 mg PO BEDTIME PRN PRN Reason: Sleep Last Admin: 10/26/17 23:49 Dose: 5 mg Discontinued Medications Amlodipine Besylate (Norvasc) 5 mg PO DAILY [facility] Last Admin: 10/27/17 10:12 Dose: Not Given Azathioprine (Imuran) 50 mg PO BID [facility] Last Admin: 10/27/17 10:12 Dose: Not Given Chlorthalidone (Chlorthalidone) 12.5 mg PO DAILY [facility] Last Admin: 10/26/17 09:52 Dose: 12.5 mg Docusate Sodium (Colace) 100 mg PO BID PRN PRN Reason: Constipation Potassium Chloride/Sodium Chloride (Normal Saline With 20 Meq Kcl) 1,000 mls @ 50 mls/hr IV ASDIRECTED [facility] Last Admin: 10/23/17 18:29 Dose: 50 mls/hr Metronidazole 500 mg/ Premix 100 mls @ 100 mls/hr IV Q8H [facility] Last Admin: 10/26/17 06:06 Dose: 100 mls/hr Albumin Human (Flexbumin 25%) 12.5 gm in 50 mls @ 100 mls/hr IV ONETIME ONE Stop: 10/27/17 10:33 Loperamide HCl (Imodium) 2 mg PO TID [facility] Last Admin: 10/24/17 12:31 Dose: Not Given Immodium Ad (1 Mg /7 (.5 Ml) *Pt Own Med*) 0 each PO TID [facility] Last Admin: 10/24/17 22:08 Dose: 2 each Potassium Chloride (Klor-Con 10) 20 meq PO ONETIME ONE Stop: 10/24/17 09:13 Last Admin: 10/24/17 19:26 Dose: Not Given Potassium Chloride (Klor-Con 10) 40 meq PO ONETIME ONE Stop: 10/25/17 10:29 Last Admin: 10/25/17 19:17 Dose: Not Given Psyllium Husk (Metamucil Sugar Free) 1 pkt PO BID [facility] Last Admin: 10/26/17 11:50 Dose: Not Given Vancomycin HCl (Pharmacy To Dose - Vancomycin) 1 dose .XX ASDIRECTED [facility] - Exam General: Reports: Alert, Oriented Neck: Reports: Supple Lungs: Reports: Normal Respiratory Effort, Decreased Breath Sounds Cardiovascular: Reports: Regular Rate, Tachycardia GI/Abdominal Exam: Normal Bowel Sounds, Soft, Tender (Minimally, diffusely), Abnormal Bowel Sounds. No: Guarding, Rigid Extremities: Pedal Edema (Trace) Skin: Reports: Warm, Dry Wound/Incisions: Reports: Other (Wet-to-dry dressing intact, no periwound erythema) Neurological: Reports: No New Focal Deficit Psy/Mental Status: Reports: Alert, Normal Affect, Normal Mood
== END 2017-10-27 11:50 | DRG 947 ==
LOC: DL.MS 14:49 → UNDOADMIN 14:49 → DL.MS 17:17
PROVIDERS: ADMIT Internal Medicine; ATTEND Internal Medicine
DX: R53.1 Weakness (principal); A41.9 Sepsis, unspecified organism; E87.1 Hypo-osmolality and hyponatremia; A04.72 Enterocolitis due to Clostridium difficile, not specified as recurrent; E46 Unspecified protein-calorie malnutrition; I10 Essential (primary) hypertension; E78.5 Hyperlipidemia, unspecified; K43.9 Ventral hernia without obstruction or gangrene; K75.4 Autoimmune hepatitis; J98.8 Other specified respiratory disorders; E87.6 Hypokalemia; E86.0 Dehydration; M35.09 Sjogren syndrome with other organ involvement; H54.7 Unspecified visual loss; D50.9 Iron deficiency anemia, unspecified; K59.09 Other constipation; M19.90 Unspecified osteoarthritis, unspecified site; B96.1 Klebsiella pneumoniae [K. pneumoniae] as the cause of diseases classified elsewhere; K21.9 Gastro-esophageal reflux disease without esophagitis; K44.9 Diaphragmatic hernia without obstruction or gangrene; Z87.891 Personal history of nicotine dependence; Z79.899 Other long term (current) drug therapy; Z88.8 Allergy status to other drugs, medicaments and biological substances; Z79.2 Long term (current) use of antibiotics; Z68.23 Body mass index [BMI] 23.0-23.9, adult; Z98.890 Other specified postprocedural states
CPT/HCPCS: 36415; 71045; 80048; 81001; 83735; 84100; 85025; 85027; 87040; 94640; A9270-GY; J0696; J1644; J2405; J3480; J3490; J7030; J7050; J7500; P9047